=== PATIENT | male | born 1965 | race Caucasian/White ===

== ENCOUNTER 2020-08-05 13:00 | Outpatient (REF) | payer OTHER, SELFPAY ==
[2020-08-05 13:53] LABS: Abs Immature Grans 0.02 10^3/uL (0.0-0.06); Absolute Basophil Count 0.03 10^3/uL (0.0-0.2); Absolute Lymphocyte Count 1.15 10^3/uL (1.2-3.4); Absolute Monocyte Count 0.43 10^3/uL (0.1-0.8); Absolute Neutrophil Count 3.38 10^3/uL (1.2-6.7); Basophils % 0.6; Immature Grans % 0.4; Lymphocytes % 22.5; MCH 31.4 pg (27.0-33.0); MCV 92.2 fL (80-95); MPV 11.6 fL (8.0-11.0); Monocytes % 8.4; Neutrophils % 66.1; Nucleated RBC 0 %; WBC 5.11 10^3/uL (4.4-10.8)
[2020-08-05 14:14] LABS: ALT 65 U/L (16-63); AST 35 U/L (15-37); Albumin 3.5 g/dL (3.4-5.0); Alkaline Phosphatase 155 U/L (46-116); Anion Gap 5.2 mmol/L (3-11); BUN 9 mg/dL (7-18); Bilirubin, Total 0.6 mg/dL (0.2-1.0); CO2 30.8 mmol/L (21.0-32.0); CREATININE 0.99 mg/dL (0.70-1.30); Calcium 8.8 mg/dL (8.5-10.1); Chloride 101 mmol/L (98-107); Diff Comment PLT Morph Reviewed; Glucose 103 mg/dL (74-106); Platelet Count 115 10^3/uL (130-400); Polychromasia Present; Potassium 4.6 mmol/L (3.5-5.1); Sodium 137 mmol/L (136-145); Total Protein 7.2 g/dL (6.4-8.2)
== END 2020-08-05 13:20 ==
LOC: LBN 13:00
PROVIDERS: PCP Emergency Medicine; Visit Provider Nurse Practitioner Family
DX: L03.116 Cellulitis of left lower limb (principal)
CPT/HCPCS: 80053; 85025; 85610

== ENCOUNTER 2020-08-13 12:04 | Outpatient (REF) | payer OTHER, SELFPAY ==
[2020-08-13 21:37] LABS: Abs Immature Grans 0.02 10^3/uL (0.0-0.06); Absolute Basophil Count 0.02 10^3/uL (0.0-0.2); Absolute Lymphocyte Count 1.21 10^3/uL (1.2-3.4); Basophils % 0.5; Eosinophils % 2.4; HCT 46.2 % (40.0-50.0); HGB 15.5 g/dL (13.5-17.5); Immature Grans % 0.5; Lymphocytes % 29.2; MCH 31.1 pg (27.0-33.0); MCHC 33.5 % (32.0-36.0); MCV 92.6 fL (80-95); MPV 11.6 fL (8.0-11.0); Monocytes % 7.2; Neutrophils % 60.2; Nucleated RBC 0 %; Platelet Count 129 10^3/uL (130-400); RBC 4.99 10^6/uL (4.36-5.78); RDW 11.9 % (11.8-14.1); RDW-SD 40.4 fL; WBC 4.15 10^3/uL (4.4-10.8)
[2020-08-13 22:04] LABS: Prothrombin Time 9.6 sec (9.3-11.0)
[2020-08-13 22:08] LABS: ALT 122 U/L (16-63); AST 53 U/L (15-37); Albumin 3.7 g/dL (3.4-5.0); Alkaline Phosphatase 138 U/L (46-116); Bilirubin, Direct 0.19 mg/dL (0.00-0.20); Bilirubin, Total 0.8 mg/dL (0.2-1.0); Total Protein 7.1 g/dL (6.4-8.2)
[2020-08-13 22:27] LABS: GGT 488 U/L (15-85)
[2020-08-13 23:23] LABS: ESR 17 mm/hr (1-20)
== END 2020-08-13 12:24 ==
LOC: LBN 12:04
PROVIDERS: PCP Emergency Medicine; Visit Provider Nurse Practitioner Family
DX: F10.11 Alcohol abuse, in remission (principal); L03.116 Cellulitis of left lower limb; I77.6 Arteritis, unspecified; I10 Essential (primary) hypertension; R21 Rash and other nonspecific skin eruption
CPT/HCPCS: 80076; 85652; 82977; 85025; 85610; 86140

== ENCOUNTER 2020-08-21 11:45 | Outpatient (CLI) | payer OTHER, SELFPAY ==
[2020-08-21 13:00] LABS: Abs Immature Grans 0.01 10^3/uL (0.0-0.06); Absolute Basophil Count 0.03 10^3/uL (0.0-0.2); Absolute Eosinophil Count 0.14 10^3/uL (0.0-0.7); Absolute Lymphocyte Count 0.96 10^3/uL (1.2-3.4); Absolute Monocyte Count 0.28 10^3/uL (0.1-0.8); Absolute Neutrophil Count 2.69 10^3/uL (1.2-6.7); Basophils % 0.7; Eosinophils % 3.4; HCT 44.7 % (40.0-50.0); HGB 15.2 g/dL (13.5-17.5); Immature Grans % 0.2; Lymphocytes % 23.4; MCH 30.9 pg (27.0-33.0); MCV 90.9 fL (80-95); MPV 11.3 fL (8.0-11.0); Monocytes % 6.8; Neutrophils % 65.5; Nucleated RBC 0 %; Platelet Count 155 10^3/uL (130-400); RBC 4.92 10^6/uL (4.36-5.78); RDW 11.5 % (11.8-14.1); RDW-SD 38.5 fL; WBC 4.11 10^3/uL (4.4-10.8)
[2020-08-21 14:12] LABS: D-Dimer 838 ng/mlFEU (<500)
[2020-08-21 14:14] LABS: ALT 168 U/L (16-63); AST 65 U/L (15-37); Albumin 3.6 g/dL (3.4-5.0); Alkaline Phosphatase 139 U/L (46-116); Anion Gap 7.9 mmol/L (3-11); BUN 9 mg/dL (7-18); Bilirubin, Total 0.5 mg/dL (0.2-1.0); C-Reactive Protein 0.08 mg/dL (0.0-0.3); CO2 29.1 mmol/L (21.0-32.0); CREATININE 0.93 mg/dL (0.70-1.30); Calcium 8.8 mg/dL (8.5-10.1); Chloride 104 mmol/L (98-107); Glucose 88 mg/dL (74-106); Potassium 4.1 mmol/L (3.5-5.1); Sodium 141 mmol/L (136-145)
[2020-08-21 15:45] LABS: Bilirubin Negative (Negative); Blood Small (Negative); Clarity Clear (Clear); Glucose Negative (Negative); Ketones Negative (Negative); Leukocyte Esterase Negative (Negative); Nitrite Negative (Negative); Urobilinogen 0.2 EU/dL (Up TO 0.2); pH 5.5 (5-8)
[2020-08-21 16:06] LABS: Bacteria Negative HPF (Negative); Casts Negative LPF (Negative); Crystals Negative HPF (Negative); Epithelial Cells Few HPF (Negative); Mucus Negative (Negative); Other Cells Negative (Negative); WBC 0-2 HPF (0-5)
[2020-08-21 16:07] LABS: C & S Indicated? No
[2020-09-05 12:36] LABS: ANA Interpretation 0.2 (Negative)
[2020-09-05 12:38] LABS: ANCA Interpretation Negative (Negative)
== END 2020-08-21 12:05 ==
PROVIDERS: PCP Emergency Medicine; Visit Provider Emergency Medicine
DX: I77.6 Arteritis, unspecified (principal); R30.0 Dysuria
CPT/HCPCS: 36415; 80053; 86255; 81003; 81015; 85025; 85379; 86038; 86140

== ENCOUNTER 2021-01-09 01:54 | Outpatient (CLI) | payer BC, SELFPAY ==
[2021-01-10 16:17] LABS: COVID-19 RT-PCR UVMMC Result Negative (Negative)
== END 2021-01-09 01:55 | disposition home or self-care (01) ==
LOC: LBO 01:55
PROVIDERS: PCP Emergency Medicine; Visit Provider Emergency Medicine
DX: Z20.828 Contact with and (suspected) exposure to other viral communicable diseases (principal)
CPT/HCPCS: U0003

== ENCOUNTER → 2022-06-30 01:53 | Outpatient (CLI) | payer BC, SELFPAY ==
--- NOTE | 2022-06-30 07:45 | DI.RAD_ITS ---
Exam(s) XR LUMBAR SPINE COMPLETE EXAM: XR LUMBAR SPINE COMPLETE CLINICAL HISTORY: Worsening lower back pain,m54.50. TECHNIQUE: 2D digital imaging was performed of the lumbar spine. Six images were obtained. AP, lat eral, right oblique, left oblique and L5-S1 spot views were obtained. COMPARISON: No exams were available for comparison FINDINGS: BONES: No fracture or destructive lesion. Degenerative disc disease is seen throughout the lumbar spi ne. Degenerative facet disease is seen in the at L5-S1. DISKS: There is disc space narrowing at L1-L2 and L5-S1. ALIGNMENT: Lumbar spinal alignment is within normal limits. No spondylolysis or spondylolisthesis. SOFT TISSUE: Normal. IMPRESSION: [id number] lumbar spondylosis. DATA REPOSITORY: RADIATION DOSE DELIVERED:
== END ==
PROVIDERS: PCP Nurse Practitioner Family; Visit Provider Nurse Practitioner Family
DX: M47.816 Spondylosis without myelopathy or radiculopathy, lumbar region (principal)
CPT/HCPCS: 72110

== ENCOUNTER 2022-07-02 04:21 | Outpatient (CLI) | payer BC, SELFPAY ==
[2022-07-02 14:21] LABS: ALT 61 U/L (16-63); AST 33 U/L (15-37); Albumin 3.6 g/dL (3.4-5.0); Alkaline Phosphatase 148 U/L (46-116); BUN 11 mg/dL (7-18); Bilirubin, Total 1.4 mg/dL (0.2-1.0); CREATININE 1.1 mg/dL (0.70-1.30); Calcium 8.7 mg/dL (8.5-10.1); Calculated LDL 82 mg/dL (<100); Chloride 104 mmol/L (98-107); Cholesterol 169 mg/dL (<200); Estimated GFR 79.77 (mL/min/1.73m2); Glucose 94 mg/dL (74-106); HDL Cholesterol 66 mg/dL (40-60); Potassium 4.2 mmol/L (3.5-5.1); Sodium 139 mmol/L (136-145); Total Protein 7.3 g/dL (6.4-8.2); Triglyceride 105 mg/dL (<150)
[2022-07-02 14:32] LABS: GGT 576 U/L (15-85)
== END 2022-07-02 04:22 | disposition home or self-care (01) ==
LOC: LOS 04:21
PROVIDERS: PCP Nurse Practitioner Family; Visit Provider Nurse Practitioner Family
DX: F10.20 Alcohol dependence, uncomplicated (principal); E78.2 Mixed hyperlipidemia
CPT/HCPCS: 36415; 80053; 80061; 82977

== ENCOUNTER → 2022-08-21 00:22 | Outpatient (CLI) | payer BC, SELFPAY ==
--- NOTE | 2022-08-21 07:00 | DI.MRI_ITS ---
Exam(s) MR LUMBAR SPINE WO EXAM: MR LUMBAR SPINE WO CLINICAL HISTORY: Worsening back pain.m54.50. TECHNIQUE: Multiplanar multisequence MRI of the Lumbar spine was performed. COMPARISON: CR XR LUMBAR SPINE COMPLETE from 06/30/2022 FINDINGS: Conus medullaris is at normal level. There is no evidence of conus mass nor subjacent clumping of in trathecal nerve roots to suggest arachnoiditis. The distal thecal sac appears unremarkable.There is no evidence of Tarlov intrasacral cysts nor other significant findings within the sacral canal Bones:There is slight anterior wedging of L2 vertebral body with some mild bone edema at this level. A this may be a subacute fracture at this level versus is anterior Schmorl's node invagination. The re are no fracture lines extending posteriorly towards the posterior vertebral body cortex and pedicl es. With respect to the individual disc levels... T12-L1: Unremarkable L1-2: Normal disc height and signal. No disc herniation nor central canal stenosis.No foraminal steno sis L2-3: Normal disc height. No disc herniation nor central canal stenosis.No foraminal stenosis.No face t arthropathy. L3-4: Normal disc height. No disc herniation or central canal stenosis.No foraminal stenosis.No face t arthropathy. L4-5: Normal disc height and signal. There is a central subligamentous disc protrusion at this level which extends posteriorly 3 millimeters and which measures 12 millimeters wide. This slightly inden ts the anterior aspect of the thecal sac. It does not extend laterally into the exiting neural amrit anat which are nicely patent bilaterally. No facet arthropathy nor ligamentum flavum hypertrophy at t his level. Central canal dimensions are lower normal. No foraminal stenosis. L5-S1: This level exhibits mild disc space narrowing and Modic type 2 sub endplate fatty marrow russo es on both sides of the disc space. There is no disc herniation at this level. No central canal tierra nosis. No foraminal stenosis. No facet arthropathy. Soft tissues: Small cysts in the right kidney are noted. Tiny cyst in the left kidney noted. The l argest cyst is in the right kidney and measures 2.9 x 2.9 cm. IMPRESSION: 1. At the L4-5 level there is a central subligamentous disc protrusion as described above. This inde nts the anterior aspect of thecal sac. It does not extend lateral to the posterior longitudinal liga ment as does not extend into the exiting neural foramina. Central canal dimensions are lower normal and there is no foraminal stenosis at this level. 2. Mild disc space narrowing and Modic type 2 sub endplate fatty marrow changes noted at L5-S1 level but no evidence of disc herniation at this level, canal stenosis, nor foraminal stenosis. 3. Indentation of the superior endplate of the anterior aspect of L2 vertebral body with some bone ed ciarra at this level indicating recent event, either developing Schmorl's node or subtle fracture at thi s level. Correlation with any recent trauma recommended. This finding and intraosseous signal abnor mality does not extend posterior to the mid aspect of the vertebral body and does not approach level the pedicles. There is no disc herniation at this level nor canal stenosis. DATA REPOSITORY:
== END ==
PROVIDERS: PCP Nurse Practitioner Family; Visit Provider Nurse Practitioner Family
DX: M54.50 Low back pain, unspecified (principal)
CPT/HCPCS: 72148

== ENCOUNTER 2023-02-09 10:23 | Emergency (ER) | payer BC, SELFPAY ==
[2023-02-09] VITALS (102 sets, daily range): BP systolic 114–135; BP diastolic 60–101; PULSE 80–112; RESP 13–28; TEMP 37; O2SAT 97
--- OUTSIDE RECORDS SUMMARY | 2023-02-09 10:30 | XMS_ITS | Continuity of Care Document ---
Author Name Unknown Organization [facility] Address [address] [place] [id number] Care Team Providers Care Security Flex Officer Name Role Phone OMAR STONE Primary Care Physicia n Encounter [facility] NBR [id number] Date(s): 12/10/22 - 12/10/[address] [id number]- Discharge Disposition: Home or Self Care Attending Physician: GREGG Koroma Admitting Physician: GREGG Koroma Allergies, Adverse Reactions, Alerts No Known Medication Allergies Medications losartan 100 mg oral tablet 100 mg = 1 tab, Oral, Daily, 0 Refill(s) Start Date: 12/09/22 Status: Ordered spironolactone 25 mg oral tablet 25 mg = 1 tab, Oral, Daily, 0 Refill(s) Start Date: 12/09/22 Status: Ordered Problem List Condition Confirmation Course Effective Dates Status H ealt Status Informant Alcoholism Confirmed Active Compression fracture of L2 Confirmed Active DDD (degenerative disc disease), lumbar Confirmed Active Degeneration of lumbar intervertebral disc Confirmed Active Dupuytren's contracture 1 Confirmed Active Hyperlipidemia Confirmed Active Hypertension Confirmed Active Low back pain Confirmed Active Vasculitis Confirmed Active 1right hand Results Radiology Reports * Exam Date Time Procedure Performing Provider Status 12/10/22 10:59 AM XR Spine Lumbosacral 2 or 3 Views Hortensia Rodríguez; Lucina (Verified) Notes: (XR Spine Lumbosacral 2 or 3 Views) Reason For Exam: low back pain XR Spine Lumbosacral 2 or 3 Views EXAM DESCRIPTION: XR Spine Lumbosacral 2 or 3 Views 12/10/2022 INDICATION: LOW BACK PAIN TECHNIQUE: Lateral views of the lumbar spine in the neutral position as well as with voluntary flexion/extension, three views COMPARISON: None IMPRESSION: Minimal retrolisthesis at L2-3. Lumbar lordosis is otherwise satisfactory Views with voluntary flexion/extension demonstrate no evidence of significant instability. No compression deformity identified in the lumbar region in the lateral projection. Intervertebral disc space narrowing at L5-S1 with mild endplate osteophyte formation at L1-2 consistent with degenerative disc disease. JOB #: [id number] Final Signed by: Hilton Pride MD Signed (Electronic Signature): 12/10/2022 11:02 am Social History Social History Type Response Tobacco Current everyday tob acco user Tobacco Use:. chewing 7-8 pouches per day. Sex XR Spine Lumbar and Sacrum GE 2 Views * Hilton Pride MD: VERIFY, VERIFY Event Display: Report EXAM DESCRIPTION: XR Spine Lumbosacral 2 or 3 Views 12/10/2022 INDICATION: LOW BACK PAIN TECHNIQUE: Lateral views of the lumbar spine in the neutral position as well as with voluntary flexion/extension, three views COMPARISON: None IMPRESSION: Minimal retrolisthesis at L2-3. Lumbar lordosis is otherwise satisfactory Views with voluntary flexion/extension demonstrate no evidence of significant instability. No compression deformity identified in the lumbar region in the lateral projection. Intervertebral disc space narrowing at L5-S1 with mild endplate osteophyte formation at L1-2 consistent with degenerative disc disease. JOB #: [id number] Final Signed by: Hilton Pride MD Signed (Electronic Signature): 12/10/2022 11:02 am Patient Care team information Care Team Personnel Name: OMAR STONE Position: No Access Member Role: Primary Care Physician Address: Address: [address] [place] [id number] [place] [address]
--- OUTSIDE RECORDS SUMMARY | 2023-02-09 10:30 | XMS_ITS | Continuity of Care Document ---
Author Name Unknown Organization [facility] Address [address] [place] [address] Care Team Providers Care Gui Developer Name Role Phone OMAR STONE Primary Care Physicia n Encounter [facility] NBR [id number] Date(s): 12/10/22 - 12/10/22 [facility] [address] [place] [address]- Encounter Diagnosis Low back pain(Discharge Diagnosis) - 12/10/22 Degeneration of lumbar intervertebral disc(Discharge Diagnosis) - 12/10/22 Compression fracture of L2(Discharge Diagnosis) - 12/10/22 Low back pain, unspecified(Final) - Other intervertebral disc degeneration, lumbar region(Final) - Wedge compression fracture of second lumbar vertebra, initial encounter for closed fracture(Final) - Discharge Disposition: Home or Self Care Attending Physician: OMAR STONE Referring Physician: OMAR STONE Allergies, Adverse Reactions, Alerts No Known Medication Allergies Functional Status 12/10/22 Other exposure to Infectious Disease Non e Medications losartan 100 mg oral tablet 100 [...] Confirmed Active Vasculitis Confirmed Active 1right hand Vital Signs Most recent to oldest [Reference Range]: 1 Temperature Temporal Artery [36-38 Deg C ] 35.5 Deg C *LOW* (12/10/22 10:12 AM) Peripheral Pulse Rate [60-100 bpm] 93 bp m (12/10/22 10:12 AM) Blood Pressure [90-140/60-90 mmHg] 118/8 4mmHg (12/10/22 10:12 AM) Weight 118.30 kg (12/10/22 10:12 AM) Weight Measured (lbs) 260.807 lb (12/10/22 10:12 AM) [place] Body Weight Calculated 79.9 kg (12/10/22 10:12 AM) Height 185.42 cm (12/10/22 10:12 AM) Height/Length Measured (inches) 73 inch (12/10/22 10:12 AM) BSA Measured 2.47 m2 (12/10/22 10:12 AM) Body Mass Index 34.41 kg/m2 (12/10/22 10:12 AM) Social History Social History Type Response Tobacco Current everyday tob acco user Tobacco Use:. chewing 7-8 pouches per day. Sex Physician Outpatient Note * GREGG Koroma: PERFORM Event Display: Office Clinic Note Physician Authored Date: [id number] ALISHA CHAUDHRY :1965 Age:57 years Sex:Male Visit Date:12/10/2022 Primary Care Physician: OMAR STONE Chief Complaint Lower back pain Additional Information surg Hx: Bilat wrist surgery 2017 (LT) 2008 (RT) Home exercise daily History of Present Illness The patient presents to the spine center for evaluation of his low back pain.?? The patient reportsthat he has had??chronic back pain??and sciatica for a long time but??in February 2022 he had a fall andsince then his pain has??increased??and has??been debilitating.?? He reports that he had a slip andfall where he landed on his back. ??He reports that at the same time he had COVID and was coughing f requently.?? He states that his pain was severe in his low back.?? He went to a chiropractor for multiple treatments and that was somewhat helpful.?? He states that particularly the ultrasound therapy was helpful. ??However, even though the pain has decreased slightly and still persists. ??His painis mostly in the middle in his low back??down very low.?? Occasionally he will have pain and tingling sensation that extends down the??lateral thigh??to the medial lower leg on both sides. ??He states that previously he only had this type of pain in the right leg.?? Fortunately, this does not happen frequently??and he does not believe he has had any leg symptoms??in the past month.??In regard to his low back pain,??this is bothered by movement including bending or twisting. ??Being in a prolonged position for any length of time also causes increased pain.?? He states that??it is at the point where he really cannot do much. ??He enjoys hunting and was not able to go this year due to his pain.?? He has??tried different forms of CBD oil which were somewhat helpful initially but stopped working.?? He has been prescribed muscle relaxers which were not very helpful and actually made him shake.?? He was also prescribed oxycodone but did not feel that was helpful so stopped taking??the medication. ?? Review of Systems Relevant ROS discussed in HPI Physical Exam Vitals & Measurements T:??35.5?C ??(Temporal Artery)?? HR:??93??(Peripheral)?? BP:??118/84?? SpO2:??98%?? HT:??185.42??cm?? WT:??118.30??kg?? BMI:??34.41?? BSA:??2.47?? GENERAL:?General Appearance:?pleasant, age appropriate. ??Appears uncomfortable when movingor changing positions. MUSCULOSKELETAL:?Musculoskeletal:??Tenderness over the upper and lower lumbar spine. ??No??lumbar paraspinal muscle,??bilateral SI joint or bilateral greater trochanteric bursa tenderness.?? NEUROLOGICAL:?Neurological:?? Negative straight leg bilaterally. ?Motor:?Strength 5/5 with bilateral hip flexion, knee flexion and extension, ankle dorsiflexion and plantar flexion.?Reflexes:?1+ and symmetric in biceps, triceps, brachioradialis,??knees??and anklesbilaterally. ? Tone: normal? Gait:??Slightly antalgic. Assessment/Plan 1.??Low back pain??M54.50 Ordered: XR Spine Lumbosacral 2 or 3 Views, 12/10/22 10:47:00 EST, Routine, Reason: low back pain, FLEX/EXT,Transport Mode: Ambulatory, Low back pain, ABN Status: Not Required ?? 2.??Degeneration of lumbar intervertebral disc??M51.36 ?? 3.??Compression fracture of L2??S32.020A ?? The patient has been struggling with chronic low back pain that has been worse since a fall last February.?? It is very likely that he sustained the L2 compression fracture with this fall hence his increased pain.?? At the time he states that he also had COVID and was coughing frequently which likely exacerbated his pain and prolong the healing. ??The MRI suggest that this is an old injury so it??has likely healed and should not be??causing him significant pain. ??It is possible that some of his pain is originating from the??facet joints at this level??following the injury.?? He also has??degeneration with endplate changes at L5-S1 which could be contributing to his??low back pain.?? The patientalso endorses that he feels that there is a muscular component with??muscle spasm and tightness in his low back.?? Explained to patient that at this point I would not recommend surgical correction for his problem as we are not??completely certain the origination of his pain.?? He may benefit from??further therapy including chiropractic treatments and physical therapy. ??Patient has tried both of t hese??with??only some temporary relief.?? We discussed that he may benefit from various injections??for his low back pain.?? Was explained that injections??can hopefully relieve his pain but can alsobe diagnostic and trying to localize the source of his pain.?? The patient is interested in a referral to the pain clinic at??[facility].?? I also suggested obtaining flexion-extension lumbar spine x-rays to evaluate for any abnormal movement. Plan: Flexion and extension lumbar spine x-rays. Referral to pain clinic??for consideration of injections. ? Time spent face to face with the patient was 42 minutes of which over 50% of the time was spent discussing diagnosis, prognosis, work-up and management. An additional 15 minutes was spent reviewing diagnostics and on documentation. Referral Orders Referral Management, Medical Service: Pain Management, Reason: Low back pain, hx L2 compression fracture, lumbar disc degeneration, Start: 12/10/22, Instructions: [facility] Pain Problem List/Past Medical History Ongoing Alcoholism Compression fracture of L2 DDD (degenerative disc disease), lumbar Degeneration of lumbar intervertebral disc Dupuytren's contracture Hyperlipidemia Hypertension Low back pain Vasculitis Historical No qualifying data Medications losartan 100 mg oral tablet, 100 mg= 1 tab, Oral, Daily spironolactone 25 mg oral tablet, 25 mg= 1 tab, Oral, Daily Allergies No Known Medication Allergies Social History Alcohol Current, Beer, Daily, Average drinks per day: 7 beers a day. Electronic Cigarette/Vaping Electronic Cigarette Use: Never. Substance Use Current, Marijuana, 1-2 times per week Tobacco Current everyday tobacco user Tobacco Use:. chewing 7-8 pouches per day. Diagnostic Results Diagnostic Study Interpretation: MRI of the lumbar spine was reviewed with the patient.?? This imaging was also reviewed with Dr. Maciel. ??There are degenerative disc changes??throughout the lumbar spine but most pronounced at L5-S1.?? At L4-5 there is a central disc bulge??that causes thecal sac indentation??but no significant??stenosis or neuroforaminal narrowing.?? At L5-S1 there??are Modic type II endplate changes??and mild bilateral facet hypertrophy??but there is no significant central stenosis or foraminal narrowing.?? There??is what appears to be an anterior wedge compression fracture of the L2 vertebral body??withmild edema on the T2??sagittal imaging??at this level??however there is no increased signal??of theL2 vertebral body on??STIR imaging. Electronically Signed on 12/10/22 11:01 AM GREGG Koroma Patient Care team information Care Team Personnel Name: OMAR STONE Position: No Access Member Role: Primary Care Physician Address: Address: [address] [place] [phone] [place]
--- NOTE | 2023-02-09 10:45 | RT.EKG_ITS ---
APPROVED REPORT Exam: Resting ECG Reason for Exam: nose bleed Patient Location: E HR:88 bpm ECG Measurements Heart Rate 88 AXIS ND 168 P 62 QRSd 144 QRS -44 QT 410 T 40 QTc 497 Conclusion Sinus rhythm...normal P axis, V-rate 60- 99 RBBB and LAFB...QRSd >120mS, axis(-40,240) Probable left ventricular hypertrophy...(RaVL+SV3)xQRSd >280 ----- Sinus rhythm with right bundle branch block, left anterior fascicular block, left ventricular hypertr ophy, baseline artifact, no prior for comparison.
--- NOTE | 2023-02-09 11:10 | ED.GENADUL_ITS ---
Discharge Plan Disposition Patient Disposition: Home Condition: Stable Discharge Details Clinical Impression: Low back pain, Vasculitis, Bleeding nose Primary Care Provider: Tariq Saini ED Provider: Megan Ferraro Home Meds and New Rx's Prescriptions: No Action losartan 100 mg tablet 100 mg PO DAILY Qty: 90 3RF spironolactone 25 mg tablet 25 mg PO DAILY Qty: 90 3RF Discharge Instructions Instructions: Nosebleed (ED), Low Back Strain (ED), Purpura (ED) Additional Instructions: You may use the Afrin twice a day for the next 2 days if you have another nosebleed. You referred to hematology in 2020 to evaluate your vasculitis. I do recommend that you make an appointment to follow-up with them now. Keep legs elevated is much as possible. Referrals: Tariq Saini, [employer] [Primary Care Provider] - 3 days Discharge Data Discharge Physician: Megan Ferraro Medical Decision Making 57-year-old male presents for evaluation of nosebleed. On examination patient appears pale. He has been having intermittent chest pain and shortness of breath. He has significant bruising and petechiae to his lower extremities without trauma. EKG was obtained which did not show any acute ischemic changes. Laboratory studies does not show any significant anemia at this time. He is not thrombocytopenic. He has mildly elevated creatinine today. He does have an elevation in his total bilirubin but LFTs otherwise appear to be trending down. I did review prior records. Patient apparently has had this petechial rash on his lower extremity as well as leg swelling for years. He was referred to hematology in 2020 however it does not appear that he had that follow-up. I have made referral to hematology for follow-up today. Patient's nosebleed stopped on its own. He was given a dose of Afrin. He will use Afrin as needed at home. He understands how to hold pressure. He understands indications to return. ECG Data Interpretation: 12 lead EKG performed at 11: 03 Indication: Chest pain Rhythm: Normal sinus rhythm Rate: 88 [place]:Normal Intervals: Normal QRS: Right bundle branch block, left anterior fascicular block, left ventricular hypertrophy ST segments: Normal T Waves: Normal INTERPRETATION: Sinus rhythm with right bundle branch block, left anterior fascicular block, left ventricular hypertrophy, baseline artifact, no prior for comparison The 12 lead EKG was interpreted by myself HPI General Date/Time Provider Initiated Documentation: 02/09/23 10:31 . HPI Narrative: 57-year-old male with history of hypertension and chronic back pain presents for evaluation of nosebleed. Patient states that he has had ongoing back pain after an injury over a year ago. He has been out of work secondary to that injury. Does have a history of high blood pressure and his primary care physician has been attempting to get his blood pressure under better control. This morning upon awakening he had some sinus congestion. He then coughed and developed a bloody nose. He states that the bleeding is coming from both sides of his nose. He occasionally feels some going down his throat. He denies any vomiting. No fevers or chills. He is not on any blood thinners. He has not been taking any aspirin or Motrin. No history of nosebleeds in the past. Patient states that he has been having some intermittent chest discomfort and shortness of breath recently. It does appear to be worse with exertion. He has not had any laboratory studies done for over a year. He has had some significant bruising. He has large bruises to his anterior lower legs bilaterally. He also has petechiae through his lower extremities. He denies any known trauma. Denies any bright red blood per rectum. No dark stools. Denies any history of issues with his platelets. Related Data Home Medications Medication Instructions Recorded Confirmed losartan 100 mg tablet 100 mg PO DAILY #90 tabs 10/01/22 02/09/23 spironolactone 25 mg tablet 25 mg PO DAILY #90 tabs 11/02/22 02/09/23 Previous Rx's Medication Instructions Recorded losartan 100 mg tablet 100 mg PO DAILY #90 tabs 10/01/22 spironolactone 25 mg tablet 25 mg PO DAILY #90 tabs 11/02/22 Allergies Allergy/AdvReac Type Severity Reaction Status Date / Time No Known Allergies Allergy Verified 02/09/23 10:41 General Stated Complaint: Epistaxis MARQUISE: 3 Review of Systems Narrative: Remainder review of systems otherwise negative except for as noted in the HPI x10. PFSH All Active Problems (Updated 02/09/23 @ 14:52 by Megan Ferraro MD) Bleeding nose (Acute) DDD (degenerative disc disease), lumbar (Acute) Obesity (BMI 30.0-34.9) (Acute) Hyperlipemia, mixed (Acute) Sleep disorder (Acute 05/07/17) Dupuytrens contracture (Acute) contracture of the right fifth finger. He has moderate ones of the right fourth and left fourth and fifth. surgery Jacek 06/20 Alcoholism (Acute) Low back pain (Acute) Vasculitis (Acute) Hypertension (Chronic) Family History Mother No problems noted. Father Heart disease Neoplasm LUNG/BRAIN Sister No problems noted. Grandfather Heart disease Grandfather No problems noted. Grandmother No problems noted. Grandmother Asthma FAMILY HISTORY Diabetes Depression Myocardial infarction Social History Smoking/Tobacco Use Status: Current every day Tobacco Type: smokeless tobacco Tobacco: How many years used: 42 Smokeless tobacco user: snuff Second Hand Exposure: Yes Smoking risk assessment performed?: Yes Alcohol Intake: current Alcohol Intake frequency: a few times a week Alcohol type: beer Drug use: Occasionally Substance use type: marijuana Household members: friend(s) Housing: house Communication Needs: Hard of Hearing Do you need help understanding health information?: Rarely Pets and animals: Yes Pets and animals: cat(s) Sexually active: Yes Do you think of yourself as: straight/heterosexual Current gender identity: male What is your relationship status?: How often do you talk on the phone with friends or family?: never Panel score (0-1 are the most socially isolated patients): 0 Do you feel safe at home: Yes Do you feel safe in your relationship?: Yes Exam Narrative Exam Narrative: General: non-toxic, no respiratory distress, comfortable HEENT: normocephalic, atraumatic, lids and lashes normal, PERRL, EOMI, anicteric sclera, pale conjunctiva, moist oral mucosa, nasal clamp in place Card: regular rate and rhythm, S1S2, + murmur, no rubs, or gallops Lungs: good air entry, clear to ascultation bilaterally. no wheezes, rales, rhonci, or retractions Abd: soft, non-tender, non-distended, normal bowel sounds, no rebound or guarding, no peritoneal signs Musculoskeletal: Large bruises to anterior lower legs bilaterally, diffuse petechiae throughout lower extremities, full range of motion of arms and legs, no tenderness to palpation. no clubbing or cyanosis, bilateral lower extremity edema Neurologic: appropriate for age, strength normal Psych: alert and oriented Skin: As above, otherwise no petechiae, no lesions, warm and dry Course Reevaluation(s) Reevaluation: 1230-at reassessment patient is not having any further nosebleeding. He is no longer tachycardic. Vital Signs Vital signs: Vital Signs Temperature 37.0 C 02/09/23 10:29 Pulse 112 H 02/09/23 10:29 Respiratory Rate 20 02/09/23 10:29 Blood Pressure 131/88 02/09/23 10:29 Pulse Oximetry 97 02/09/23 10:29 Temperature 37.0 C 02/09/23 10:29 Pulse 112 H 02/09/23 10:29 Respiratory Rate 20 02/09/23 10:29 Respiratory Effort Normal 02/09/23 10:33 Blood Pressure 131/88 02/09/23 10:29 Blood Pressure Position Sitting 02/09/23 10:29 Pulse Oximetry 97 02/09/23 10:29 Pain Level 0 02/09/23 10:29
[2023-02-09 11:16] LABS: Abs Immature Grans 0.02 10^3/uL (0.0-0.06); Absolute Basophil Count 0.04 10^3/uL (0.0-0.2); Absolute Eosinophil Count 0.03 10^3/uL (0.0-0.7); Absolute Lymphocyte Count 0.61 10^3/uL (1.2-3.4); Absolute Monocyte Count 0.23 10^3/uL (0.1-0.8); Absolute Neutrophil Count 5.22 10^3/uL (1.2-6.7); Basophils % 0.7; Eosinophils % 0.5; HGB 12.2 g/dL (13.5-17.5); Immature Grans % 0.3; Lymphocytes % 9.9; MCH 33.1 pg (27.0-33.0); MCHC 35.9 % (32.0-36.0); MCV 92 fL (80-95); MPV 10.8 fL (8.0-11.0); Monocytes % 3.7; Neutrophils % 84.9; Platelet Count 143 10^3/uL (130-400); RBC 3.69 10^6/uL (4.36-5.78); RDW 13.2 % (11.8-14.1); RDW-SD 44.3 fL; WBC 6.15 10^3/uL (4.4-10.8)
--- NOTE | 2023-02-09 11:17 | DI.RAD_ITS ---
Exam(s) XR PORTABLE CHEST AP EXAM: XR PORTABLE CHEST AP CLINICAL HISTORY: chest pain. TECHNIQUE: 2D digital imaging was performed. COMPARISON: No exams were available for comparison FINDINGS: Single AP portable view. Heart size is upper normal. The mediastinum is not widened. Lungs are clear. No infiltrates nor obvious pleural effusions. IMPRESSION: No acute pulmonary findings on this single AP portable view of the chest. DATA REPOSITORY: RADIATION DOSE DELIVERED:
[2023-02-09 11:18] LABS: ESR 10 mm/hr (0-20)
[2023-02-09 11:29] LABS: Prothrombin Time 10.4 sec (9.3-11.0)
[2023-02-09 11:40] LABS: PTT Activated 25.3 sec (21.5-31.9)
[2023-02-09 11:42] LABS: ALT 72 U/L (16-63); AST 39 U/L (15-37); Albumin 3.2 g/dL (3.4-5.0); Alkaline Phosphatase 131 U/L (46-116); BUN 14 mg/dL (7-18); Bilirubin, Total 3.3 mg/dL (0.2-1.0); CREATININE 1.5 mg/dL (0.70-1.30); Calcium 8.5 mg/dL (8.5-10.1); Chloride 98 mmol/L (98-107); Estimated GFR 54.64 (mL/min/1.73m2); Glucose 120 mg/dL (74-106); Magnesium 1.9 mg/dL (1.8-2.4); Potassium 3.4 mmol/L (3.5-5.1); Sodium 133 mmol/L (136-145); Total Protein 7.2 g/dL (6.4-8.2); Troponin I < 50 ng/L (<or=60)
[2023-02-09 12:00] LABS: C-Reactive Protein 1.13 mg/dL (0.0-0.3); NT-proBNP 83 pg/mL (<300)
[2023-02-09] MEDS: Oxymetazolone 0.05% SPRAY 15 ML BTL NS (12:51)
[2023-02-09 14:22] LABS: Troponin I < 50 ng/L (<or=60)
--- NOTE | 2023-02-10 16:02 | CMACTNOTE_ITS ---
Date of service: 02/10/23 Time of Service: 16:02 Care Management Activity Note Activity Note Text Activity Note Text: Eleuterio is seen in the ED for a nose bleed and vasculitis. At the request of ED provider, DHARA coordinates a referral to [facility]ematology to assist Eleuterio in obtaining an appointment for further evaluation and treatment. He has [facility] [place] for insurance.
--- NOTE | 2023-02-10 16:02 | PDOC.CMACT ---
Date of service: 02/10/23 Time of Service: 16:02 Care Management Activity Note Activity Note Text Activity Note Text: Eleuterio is seen in the ED for a nose bleed and vasculitis. At the request of ED provider, DHARA coordinates a referral to [facility]ematology to assist Eleuterio in obtaining an appointment for further evaluation and treatment. He has [facility] [place] for insurance.
--- NOTE | 2023-03-09 15:41 | NUR.NOTE ---
Nursing Note: Accessed pt chart for provider information and disposition
== END 2023-02-09 15:09 | disposition home or self-care (01) ==
PROVIDERS: Emergency Provider Emergency Medicine Emergency Medical Services; PCP Nurse Practitioner Family
DX: R04.0 Epistaxis (principal); M54.59 Other low back pain; L95.9 Vasculitis limited to the skin, unspecified; R06.02 Shortness of breath; R07.9 Chest pain, unspecified; I10 Essential (primary) hypertension
CPT/HCPCS: 36415; 80053; 85652; 86850; 86900; 86901; 93005; 99284; 71045; 83735; 83880; 84484; 85025; 85610; 85730; 86140; 93010; 99283

== ENCOUNTER 2023-02-15 14:10 | Outpatient (CLI) | payer BC, SELFPAY ==
--- NOTE | 2023-02-15 14:00 | RT.EKG_ITS ---
APPROVED REPORT Exam: Resting ECG Reason for Exam: Shortness of breath Patient Location: O HR:85 bpm ECG Measurements Heart Rate 85 AXIS TN 148 P 20 QRSd 141 QRS -34 QT 417 T 39 QTc 496 Conclusion Sinus rhythm...normal P axis, V-rate 50- 99 Right bundle branch block...QRSd>120, terminal axis(90,270) Left ventricular hypertrophy...multiple LVH criteria
== END 2023-02-15 14:11 | disposition home or self-care (01) ==
LOC: DI.CM 14:10
PROVIDERS: PCP Nurse Practitioner Family; Visit Provider Nurse Practitioner Family
DX: I10 Essential (primary) hypertension (principal); R06.02 Shortness of breath
CPT/HCPCS: 93010

== ENCOUNTER 2023-02-15 15:18 | Inpatient (IN) | payer BC, SELFPAY ==
[2023-02-15] VITALS (7 sets, daily range): BP systolic 98–143; BP diastolic 56–73; PULSE 76–88; RESP 18–22; TEMP 36.8–37.4; O2SAT 100
--- NOTE | 2023-02-15 15:00 | RT.EKG_ITS ---
APPROVED REPORT Exam: Resting ECG Reason for Exam: shortness of breath Patient Location: E HR:76 bpm ECG Measurements Heart Rate 76 AXIS GA 163 P 31 QRSd 146 QRS -32 QT 464 T 46 QTc 521 Conclusion Sinus rhythm...normal P axis, V-rate 60- 99 Right bundle branch block...QRSd>120, terminal axis(90,270) Left ventricular hypertrophy...multiple LVH criteria Lateral infarct, old...Q>40mS, flat T, V5 V6 I aVL
[2023-02-15 15:33] LABS: BE (Venous) -2 mmol/L (-2-3); HCO3 (Venous) 22 mmol/L (23-28); O2 Sat (Venous) 51 %; TCO2 (Venous) 21 mmol/L (24-29); pCO2 (Venous) 30 mmHg (41-51); pH (Venous) 7.47 (7.31-7.41); pO2 (Venous) 26 mmHg
[2023-02-15 15:37] LABS: Abs Immature Grans 0.02 10^3/uL (0.0-0.06); Absolute Basophil Count 0.02 10^3/uL (0.0-0.2); Absolute Eosinophil Count 0.02 10^3/uL (0.0-0.7); Absolute Lymphocyte Count 0.44 10^3/uL (1.2-3.4); Absolute Monocyte Count 0.26 10^3/uL (0.1-0.8); Absolute Neutrophil Count 3.56 10^3/uL (1.2-6.7); Basophils % 0.5; Eosinophils % 0.5; HCT 21.8 % (40.0-50.0); HGB 7.6 g/dL (13.5-17.5); Immature Grans % 0.5; Lymphocytes % 10.2; MCH 32.8 pg (27.0-33.0); MCHC 34.9 % (32.0-36.0); MCV 94 fL (80-95); MPV 10.1 fL (8.0-11.0); Neutrophils % 82.3; Platelet Count 128 10^3/uL (130-400); RBC 2.32 10^6/uL (4.36-5.78); RDW 13.7 % (11.8-14.1); RDW-SD 46.6 fL; WBC 4.32 10^3/uL (4.4-10.8)
--- NOTE | 2023-02-15 15:43 | W.ED.GENAD ---
Discharge Plan Disposition Patient Disposition: Admit to [facility] Condition: Serious Discharge Details Chief Complaint: GenMedical Clinical Impression: Pancytopenia, Purpura Primary Care Provider: Tariq Saini ED Provider: Donavan Parekh Home Meds and New Rx's Prescriptions: No Action losartan 100 mg tablet 100 mg PO DAILY Qty: 90 3RF spironolactone 25 mg tablet 25 mg PO DAILY Qty: 90 3RF Medical Decision Making 57 yo male with hx of htn who denies smoking or drug use other than marijuana occasionally though does drink alcohol frequently, comes in with ems with shortness of breath for 3 weeks. HE was seen for epistaxis on 02/09 and d/c'd. He states he's had nasal mucous with some blood tinge in it since. He has also noticed occasionall chest tightness, denies diaphoresis, n/v, or radiation of pain. He arrives stable speaking clearly with stable vitals, no hypotension, no tachycardia or hypoxia. He has clear lungs, soft nontender abdomen, no calf tenderness. He does have diffuse purpura of his lower legs bilaterally and left calf. His lvh on bedside u/s appears normal, questions tiny pericardial effusion though images limited. Unclear etiology for his dyspnea, will proceed with ekg, troponin, cbc, cmp, and cta to evaluate for pe vs infiltrate labs show acute changes from last visit, now anemic, thrombocytopenic and leukopenic, has lucy with gfr less then 30 so will hold on cta, still no hypoxia or tachycardia so unlikely pe. Given acute changes concern for sepsis and possible tick born illness. HE remains hemodynamically stable. He gave verbal consent to a rectal, had brown stool guiac negative. Will discuss with hospitalist about admission for further workup, other potential concerns are vasculitis and autoimmune disorders. Differential Diagnosis Differential Diagnosis: pe, pneumonia, nstemi, anemia Medical Records Medical records reviewed: Yes I reviewed the patient's medical records. Lab Data Lab results reviewed: Yes I reviewed the patient's lab results. ECG Data Attestation: I personally reviewed and interpreted this ECG (s) as follows: Prior ECG tracings: available for review Interpretation: sinus rate of 75, pr 161, rbbb, lvh, no stemi HPI General Mode of arrival: EMS. Date/Time Provider Initiated Documentation: 02/15/23 15:21. Limitations to Documentation: no limitations. Information obtained by: patient. History of Present Illness 57 year old M presents to the emergency department with the chief complaint of shortness of breath, described as moderate, Patient started experiencing this week(s) (3) and it has been constant. No relieving factors improve symptom(s), No exacerbating factors reported . Patient notes chest pain; denies fever/chills. Patient did receive the following treatments prior to arrival, none Related Data Home Medications Medication Instructions Recorded Confirmed losartan 100 mg tablet 100 mg PO DAILY #90 tabs 10/01/22 02/15/23 spironolactone 25 mg tablet 25 mg PO DAILY #90 tabs 11/02/22 02/15/23 Previous Rx's Medication Instructions Recorded losartan 100 mg tablet 100 mg PO DAILY #90 tabs 10/01/22 spironolactone 25 mg tablet 25 mg PO DAILY #90 tabs 11/02/22 Allergies Allergy/AdvReac Type Severity Reaction Status Date / Time No Known Allergies Allergy Verified 02/15/23 15:20 General Stated Complaint: GenMedical MARQUISE: 3 Review of Systems All systems reviewed & are unremarkable except as noted in HPI and below Constitutional Constitutional: Denies chills, Denies fever(s) and Denies weakness Cardiovascular Cardiovascular: Reports chest pain Respiratory Respiratory: Denies cough Gastrointestinal Gastrointestinal: Denies abdominal pain, Denies nausea and Denies vomiting Neurologic Neurologic: Denies weakness PFSH All Active Problems (Updated 02/15/23 @ 17:25 by Donavan Parekh MD) Pancytopenia (Acute) Purpura (Acute) Chest pain (Acute) Bleeding nose (Acute) DDD (degenerative disc disease), lumbar (Acute) Obesity (BMI 30.0-34.9) (Acute) Hyperlipemia, mixed (Acute) Sleep disorder (Acute 05/07/17) Dupuytrens contracture (Acute) contracture of the right fifth finger. He has moderate ones of the right fourth and left fourth and fifth. surgery Jacek 06/20 Alcoholism (Acute) Low back pain (Acute) Vasculitis (Acute) Hypertension (Chronic) Family History Mother No problems noted. Father Heart disease Neoplasm LUNG/BRAIN Sister No problems noted. Grandfather Heart disease Grandfather No problems noted. Grandmother No problems noted. Grandmother Asthma FAMILY HISTORY Diabetes Depression Myocardial infarction Social History Smoking/Tobacco Use Status: Current every day Tobacco Type: smokeless tobacco Tobacco: How many years used: 42 Smokeless tobacco user: snuff Second Hand Exposure: Yes Smoking risk assessment performed?: Yes Alcohol Intake: current Alcohol Intake frequency: a few times a week Alcohol type: beer Drug use: Occasionally Substance use type: marijuana Household members: friend(s) Housing: house Communication Needs: Hard of Hearing Do you need help understanding health information?: Rarely Pets and animals: Yes Pets and animals: cat(s) Sexually active: Yes Do you think of yourself as: straight/heterosexual Current gender identity: male What is your relationship status?: How often do you talk on the phone with friends or family?: never Panel score (0-1 are the most socially isolated patients): 0 Do you feel safe at home: Yes Do you feel safe in your relationship?: Yes Exam Const General: no acute distress Orientation: alert HENMT Head: normal to inspection Ears: external ears normal General nose exam: external nose normal Mouth: moist mucous membranes Eyes General: appearance normal, both eyes and all related structures Neck Neck: normal visual inspection Resp Effort & Inspection: normal respiratory effort and able to speak in complete sentences Auscultation: clear to auscultation bilaterally Cardio Jugular venous pressure: no JVD Rate: regular rate Heart Sounds: no murmurs GI Palpation: soft and nontender Skin General skin exam: no rashes or lesions noted Neuro General: patient alert and patient oriented x3 Extrem General: normal to inspection Psych Mental Status: mental status grossly normal Course Vital Signs Vital signs: Vital Signs Temperature 36.8 C 02/15/23 15:16 Pulse 80 02/15/23 15:16 Respiratory Rate 18 02/15/23 15:16 Blood Pressure 113/59 L 02/15/23 15:16 Pulse Oximetry 100 02/15/23 15:16 Temperature 36.8 C 02/15/23 15:16 Temperature Source Oral 02/15/23 15:16 Pulse 80 02/15/23 15:16 Respiratory Rate 22 02/15/23 15:35 Respiratory Effort Short of Breath 02/15/23 15:35 Respiratory Depth Normal 05/15/23 15:35 Respiratory Pattern Normal 02/15/23 15:35 Blood Pressure 113/59 L 02/15/23 15:16 Blood Pressure Position Supine 02/15/23 15:16 Pulse Oximetry 100 02/15/23 15:16 Oxygen Delivery Method Room Air 02/15/23 15:16 Oxygen Flow Rate 0 02/15/23 15:16 Pain Level 5 02/15/23 15:16 Lab/Test Results Lab/Test Results: 02/15/23 15:27 Blood Blood Culture - Pending 02/15/23 15:12 Blood Blood Culture - Pending Laboratory Tests Range/Units 02/15/23 02/15/23 15:27 15:27 WBC (4.4-10.8) 10^3/uL 4.32 L RBC (4.36-5.78) 10^6/uL 2.32 L Hgb (13.5-17.5) g/dL 7.6 L Hct (40.0-50.0) % 21.8 L MCV (80-95) fL 94 MCH (27.0-33.0) pg 32.8 MCHC (32.0-36.0) % 34.9 RDW (11.8-14.1) % 13.7 Plt Count (130-400) 10^3/uL 128 L MPV (8.0-11.0) fL 10.1 Immature Gran % 0.5 Neutrophils % 82.3 Lymphocytes % 10.2 Monocytes % 6.0 Eosinophils % 0.5 Basophils % 0.5 Nucleated RBC % (0.0-0.3) % 0.0 Absolute Neutrophils (1.2-6.7) 10^3/uL 3.56 Absolute Lymphocytes (1.2-3.4) 10^3/uL 0.44 L Absolute Monocytes (0.1-0.8) 10^3/uL 0.26 Absolute Eosinophils (0.0-0.7) 10^3/uL 0.02 Absolute Basophils (0.0-0.2) 10^3/uL 0.02 VBG pH (7.31-7.41) 7.47 H VBG pCO2 (41-51) mmHg 30 L VBG pO2 mmHg 26 VBG HCO3 (23-28) mmol/L 22 L VBG Total CO2 (24-29) mmol/L 21 L VBG O2 Saturation % 51 VBG Base Excess (-2-3) mmol/L -2 POCUS Exam (ED) Limited Cardiac Exam DATE OF EXAM: 02/15/23 TIME OF EXAM: 15:47 PROVIDER THAT PERFORMED THE STUDY: Donavan Parekh IS THIS A REPEAT EXAM DURING THIS ENCOUNTER: no REASON FOR EXAM: Dyspnea VISUALIZED STRUCTURES: Left ventricle and Right ventricle VIEW OBTAINED: Parasternal long-axis PERTINENT FINDINGS/IMPRESSION: No LV dysfunction Exam complete
[2023-02-15 15:47] LABS: PTT Activated 24.6 sec (21.5-31.9); Prothrombin Time 10.4 sec (9.3-11.0)
--- NOTE | 2023-02-15 16:00 | DI.RAD_ITS ---
Exam(s) XR PORTABLE CHEST AP EXAM: XR PORTABLE CHEST AP CLINICAL HISTORY: shortness of breath TECHNIQUE: 2D digital imaging was performed. COMPARISON: CR XR PORTABLE CHEST AP from 02/09/2023 FINDINGS: LUNGS: Clear. No pleural abnormality seen. HEART: Upper normal size. AORTA: Normal diameter. BONES: Unremarkable for age. Soft tissues: Unremarkable. IMPRESSION: No acute findings. DATA REPOSITORY: RADIATION DOSE DELIVERED:
[2023-02-15 16:02] LABS: ALT 32 U/L (16-63); AST 17 U/L (15-37); Albumin 2.5 g/dL (3.4-5.0); Alkaline Phosphatase 99 U/L (46-116); Anion Gap 10.3 mmol/L (3-11); BUN 32 mg/dL (7-18); Bilirubin, Direct 0.8 mg/dL (0.0-0.2); Bilirubin, Total 2.9 mg/dL (0.2-1.0); CO2 21.7 mmol/L (21.0-32.0); CREATININE 2.6 mg/dL (0.70-1.30); Calcium 8.3 mg/dL (8.5-10.1); Chloride 101 mmol/L (98-107); Estimated GFR 28.24 (mL/min/1.73m2); Glucose 114 mg/dL (74-106); Magnesium 2.1 mg/dL (1.8-2.4); NT-proBNP 197 pg/mL (<300); Potassium 3.1 mmol/L (3.5-5.1); Sodium 133 mmol/L (136-145); TSH (W/Ref FT4) 2.21 uIU/mL (0.36-3.74); Total Protein 5.9 g/dL (6.4-8.2); Troponin I < 50 ng/L (<or=60)
[2023-02-15 16:04] LABS: ETHANOL BLOOD < 3.0 mg/dL (<10)
[2023-02-15 16:18] LABS: Source Nasal/Nares
[2023-02-15] MEDS: Potassium Chloride 20 MEQ TABCR 40 MEQ PO (16:50)
[2023-02-15] MEDS: POTASSIUM CHLORIDE 10 MEQ/100 ML BAG 100 MEQ IVPB (16:50)
[2023-02-15 17:14] LABS: Procalcitonin 0.2 ng/mL
[2023-02-15] MEDS: cefTRIAXone 2 GM/50 ML BAG IVPB (17:15)
[2023-02-15 17:27] LABS: ESR 5 mm/hr (0-20)
[2023-02-15 17:35] LABS: C-Reactive Protein 1.51 mg/dL (0.0-0.3)
--- NOTE | 2023-02-15 17:37 | NUR.NOTE ---
hospitalist at bedside
[2023-02-15 17:43] LABS: COVID-19 PCR Negative (Negative)
--- NOTE | 2023-02-15 18:08 | HPE_ITS ---
Date of service: 02/15/23 Time of Service: 18:08 Assessment and Plan Assessment and plan (1) Pancytopenia: Status: Acute Assessment and plan: WBC 4.32; RBC 2.32; Hgb 7.6 ? down from visit 02/09/2023 which was 12.2; HCT 21.8, down from 02/09/23 34.0; PLT 128; One unit of blood given - recheck Hgb post transfusion, suspect he will need more blood Stool heme neg in ED Monitor labs (2) DAINA (acute kidney injury): Status: Acute Assessment and plan: Creatinine 2.6 BUN 32 up from baseline - IVF; no urinary retention or complaints Monitor No CTA done setting of DAINA - doubt PE, not hypoxic, no tachycardia (3) Purpura: Status: Acute Assessment and plan: Bilateral legs to groin L>R monitor (4) Alcoholism: Status: Acute Assessment and plan: Drinks 6 beer a day; states he haver had withdrawal - monitor for any signs (5) Hypertension: Status: Chronic Assessment and plan: Borderline hypotension here with SBP ~ 100 Hold Losartin and spironolactone in setting of DAINA (6) Vasculitis: Status: Acute Assessment and plan: As above (7) DVT prophylaxis: Status: Acute Assessment and plan: SCD; no chemical prophylaxis in setting of pancytopenia (8) Discharge planning issues: Status: Acute Assessment and plan: Home when medically stable Discussed with Dr Busch History of Present Illness History of Present Illness Chief Complaint: Shortness of breath; pancytopenia Narrative: This is a 57 yo male patient with a past medical history of hypertension who denies smoking or drug use other than marijuana occasionally though does drink alcohol frequently, reports six beer every day, has never had withdrawal, who comes in to the [facility] ED via EMS with shortness of breath for 3 weeks. He was seen at the [facility] ED for epistaxis on 02/09 and d/c'd home. He stated he had nasal mucous with some blood tinge in it since, but no abel bleeding. He has also noticed occasional chest tightness, denied diaphoresis, n/v, or radiation of pain. He arrived to the ED stable, speaking clearly in full sentences with stab le vitals, question of hypotension, no tachycardia or hypoxia. He looks sick. He had clear lungs, soft nontender abdomen, no calf tenderness. He did have diffuse purpura of both of his legs up to the groin, L>R. POCUS in the ED, per provider, ?appeared normal, question of tiny pericardial effusion though images limited. Labs in the ED show acute changes from last visit, now anemic, thrombocytopenic and leukopenic, has DAINA with GFR less then 30, CTA was held. No hypoxia or tachycardia so unlikely PE. Given acute changes concern for sepsis and possible tick born illness. He remained hemodynamically stable. He gave verbal consent to the ED provider for a rectal exam; he had brown stool guiac n egative.? Labs: WBC 4.32; RBC 2.32; Hgb 706 ? down from visit 02/09/2023 which was 12.2; HCT 21.8, down from 02/09/23 34.0; PLT 128; NA 133, potassium 3.1; BUN 32 Creatinine 2.6 up from 02/09/2023 14 and 1.5; total bilirubin 2.9; CRP 1.51, ESR 5, albumin 2.5; procalcitonin 0.2; covid negative. EKG - sinus rate of 75, KS 161, RBBB, LVH, no STEMI He is being admitted to the medical floor for anemia, possible vasculitis and autoimmune disorders, IVF, PRBCs and monitoring. Discussed with Dr Busch Review of Systems All systems reviewed & are unremarkable except as noted in HPI and below PFSH All Active Problems (Updated 02/15/23 @ 18:35 by Yajaira Whitney NP) DAINA (acute kidney injury) (Acute) Discharge planning issues (Acute) DVT prophylaxis (Acute) Pancytopenia (Acute) Purpura (Acute) Chest pain (Acute) Bleeding nose (Acute) DDD (degenerative disc disease), lumbar (Acute) Obesity (BMI 30.0-34.9) (Acute) Hyperlipemia, mixed (Acute) Sleep disorder (Acute 05/07/17) Dupuytrens contracture (Acute) contracture of the right fifth finger. He has moderate ones of the right fourth and left fourth and fifth. surgery [place] 06/20 Alcoholism (Acute) Low back pain (Acute) Vasculitis (Acute) Hypertension (Chronic) Family History Mother No problems noted. Father Heart disease Neoplasm LUNG/BRAIN Sister No problems noted. Grandfather Heart disease Grandfather No problems noted. Grandmother No problems noted. Grandmother Asthma FAMILY HISTORY Diabetes Depression Myocardial infarction Social History Smoking/Tobacco Use Status: Current every day Tobacco Type: smokeless tobacco Tobacco: How many years used: 42 Smokeless tobacco user: snuff Second Hand Exposure: Yes Smoking risk assessment performed?: Yes Alcohol Intake: current Alcohol Intake frequency: a few times a week Alcohol type: beer Drug use: Occasionally Substance use type: marijuana Household members: friend(s) Housing: house Communication Needs: Hard of Hearing Do you need help understanding health information?: Rarely Pets and animals: Yes Pets and animals: cat(s) Sexually active: Yes Do you think of yourself as: straight/heterosexual Current gender identity: male What is your relationship status?: How often do you talk on the phone with friends or family?: never Panel score (0-1 are the most socially isolated patients): 0 Do you feel safe at home: Yes Do you feel safe in your relationship?: Yes Meds Allergies and Home Medications Allergies Allergy/AdvReac Type Severity Reaction Status Date / Time No Known Allergies Allergy Verified 02/15/23 15:20 Home Medications Medication Instructions Recorded Confirmed Type losartan 100 mg tablet 100 mg PO DAILY #90 tabs 10/01/22 02/15/23 Rx spironolactone 25 mg tablet 25 mg PO DAILY #90 tabs 11/02/22 02/15/23 Rx Exam Narrative Exam Narrative: Ill appearing male supine in bed, awake, alert, conversant, looks tired, pale and slight scleral icterus noted. Const General: cooperative, uncomfortable, no acute distress, well developed, well groomed and ill appearing acutely Nutritional Appearance: average body habitus Orientation: alert, awake and oriented x3 Limitations: altered mental status HENMT Head: normal to inspection Ears: external ears normal General nose exam: external nose normal Mouth: moist mucous membranes Eyes Sclera: scleral abnormality bilaterally (slight icterus) Neck Neck: normal visual inspection Chest Chest: normal inspection of the chest Resp Effort & Inspection: normal respiratory effort and able to speak in complete sentences Auscultation: clear to auscultation bilaterally Cardio Jugular venous pressure: no JVD Rate: regular rate Rhythm: regular rhythm Heart Sounds: S1 normal, S2 normal and no murmurs GI Palpation: soft and nontender Skin Other: Purpura bilateral legs to groin L>R Neuro General: patient alert and patient oriented x3 Psych Mental Status: mental status grossly normal Results Labs 02/16/23 00:25 02/15/23 15:27 Labs: Laboratory Results - last 24 hr 02/15/23 02/15/23 02/15/23 15:27 15:27 15:27 WBC 4.32 L RBC 2.32 L Hgb 7.6 L Hct 21.8 L MCV 94 MCH 32.8 MCHC 34.9 RDW 13.7 Plt Count 128 L MPV 10.1 Immature Gran % 0.5 Neutrophils % 82.3 Band Neutrophils % Lymphocytes % 10.2 Atypical Lymphs % Monocytes % 6.0 Eosinophils % 0.5 Basophils % 0.5 Metamyelocytes % Myelocytes % Promyelocytes % Other Cells % Nucleated RBC % 0.0 Absolute Neutrophils 3.56 Absolute Lymphocytes 0.44 L Absolute Monocytes 0.26 Absolute Eosinophils 0.02 Absolute Basophils 0.02 RBC Morphology Polychromasia Hypochromasia Poikilocytosis Basophilic Stippling Anisocytosis Microcytosis Macrocytosis Spherocytes Tear Drop Cells Ovalocytes Stomatocytes [place] Bodies Ilya Cells/Echinocytes Acanthocytes (Spur) Schistocytes ESR PT 10.4 INR 1.0 APTT 24.6 VBG pH VBG pCO2 VBG pO2 VBG HCO3 VBG Total CO2 VBG O2 Saturation VBG Base Excess Sodium 133 L Potassium 3.1 L Chloride 101 Carbon Dioxide 21.7 Anion Gap 10.3 BUN 32 H Creatinine 2.6 H Est GFR (CKD-EPI 2020) 28.24 Glucose 114 H Calcium 8.3 L Magnesium 2.1 Total Bilirubin 2.9 H Conjugated Bilirubin 0.8 H AST 17 ALT 32 Alkaline Phosphatase 99 Troponin I < 50 C-Reactive Protein NT-Pro-B Natriuret Pep 197 Total Protein 5.9 L Albumin 2.5 L Procalcitonin TSH 2.21 Ethyl Alcohol < 3.0 COVID-19 Source SARS-CoV-2 (PCR) Patient ABO/Rh Antibody Screen 02/15/23 02/15/23 02/15/23 15:27 15:27 15:27 WBC RBC Hgb Hct MCV MCH MCHC RDW Plt Count MPV Immature Gran % Neutrophils % Band Neutrophils % Lymphocytes % Atypical Lymphs % Monocytes % Eosinophils % Basophils % Metamyelocytes % Myelocytes % Promyelocytes % Other Cells % Nucleated RBC % Absolute Neutrophils Absolute Lymphocytes Absolute Monocytes Absolute Eosinophils Absolute Basophils RBC Morphology Polychromasia Hypochromasia Poikilocytosis Basophilic Stippling Anisocytosis Microcytosis Macrocytosis Spherocytes Tear Drop Cells Ovalocytes Stomatocytes [place] Bodies Viola Cells/Echinocytes Acanthocytes ([place]) Schistocytes ESR 5 PT INR APTT VBG pH 7.47 H VBG pCO2 30 L VBG pO2 26 VBG HCO3 22 L VBG Total CO2 21 L VBG O2 Saturation 51 VBG Base Excess -2 Sodium Potassium Chloride Carbon Dioxide Anion Gap BUN Creatinine Est GFR (CKD-EPI 2020) Glucose Calcium Magnesium Total Bilirubin Conjugated Bilirubin AST ALT Alkaline Phosphatase Troponin I C-Reactive Protein 1.51 H NT-Pro-B Natriuret Pep Total Protein Albumin Procalcitonin TSH Ethyl Alcohol COVID-19 Source SARS-CoV-2 (PCR) Patient ABO/Rh Antibody Screen 02/15/23 02/15/23 02/15/23 16:14 16:19 16:19 WBC RBC Hgb Hct MCV MCH MCHC RDW Plt Count MPV Immature Gran % Neutrophils % Band Neutrophils % Lymphocytes % Atypical Lymphs % Monocytes % Eosinophils % Basophils % Metamyelocytes % Myelocytes % Promyelocytes % Other Cells % Nucleated RBC % Absolute Neutrophils Absolute Lymphocytes Absolute Monocytes Absolute Eosinophils Absolute Basophils RBC Morphology Polychromasia Hypochromasia Poikilocytosis Basophilic Stippling Anisocytosis Microcytosis Macrocytosis Spherocytes Tear Drop Cells Ovalocytes Stomatocytes [place] Bodies Viola Cells/Echinocytes Acanthocytes ([place]ur) Schistocytes ESR PT INR APTT VBG pH VBG pCO2 VBG pO2 VBG HCO3 VBG Total CO2 VBG O2 Saturation VBG Base Excess Sodium Potassium Chloride Carbon Dioxide Anion Gap BUN Creatinine Est GFR (CKD-EPI 2020) Glucose Calcium Magnesium Total Bilirubin Conjugated Bilirubin AST ALT Alkaline Phosphatase Troponin I C-Reactive Protein NT-Pro-B Natriuret Pep Total Protein Albumin Procalcitonin 0.2 TSH Ethyl Alcohol COVID-19 Source Nasal/Nares SARS-CoV-2 (PCR) Negative Patient ABO/Rh O Negative Antibody Screen NEGATIVE 02/15/23 02/15/23 02/15/23 17:12 17:22 20:00 WBC Cancelled RBC Cancelled Hgb Cancelled Hct Cancelled MCV Cancelled MCH Cancelled MCHC Cancelled RDW Cancelled Plt Count Cancelled MPV Cancelled Immature Gran % Cancelled Neutrophils % Cancelled Band Neutrophils % Cancelled Lymphocytes % Cancelled Atypical Lymphs % Cancelled Monocytes % Cancelled Eosinophils % Cancelled Basophils % Cancelled Metamyelocytes % Cancelled Myelocytes % Cancelled Promyelocytes % Cancelled Other Cells % Cancelled Nucleated RBC % Cancelled Absolute Neutrophils Cancelled Absolute Lymphocytes Cancelled Absolute Monocytes Cancelled Absolute Eosinophils Cancelled Absolute Basophils Cancelled RBC Morphology Cancelled Polychromasia Cancelled Hypochromasia Cancelled Poikilocytosis Cancelled Basophilic Stippling Cancelled Anisocytosis Cancelled Microcytosis Cancelled Macrocytosis Cancelled Spherocytes Cancelled Tear Drop Cells Cancelled Ovalocytes Cancelled Stomatocytes Cancelled [place] Bodies Cancelled Viola Cells/Echinocytes Cancelled Acanthocytes ([place]) Cancelled Schistocytes Cancelled ESR PT INR APTT VBG pH VBG pCO2 VBG pO2 VBG HCO3 VBG Total CO2 VBG O2 Saturation VBG Base Excess Sodium Cancelled Potassium Cancelled Chloride Cancelled Carbon Dioxide Cancelled Anion Gap Cancelled BUN Cancelled Creatinine Cancelled Est GFR (CKD-EPI 2020) Cancelled Glucose Cancelled Calcium Cancelled Magnesium Total Bilirubin Cancelled Conjugated Bilirubin AST Cancelled ALT Cancelled Alkaline Phosphatase Cancelled Troponin I C-Reactive Protein NT-Pro-B Natriuret Pep Total Protein Cancelled Albumin Cancelled Procalcitonin TSH Ethyl Alcohol COVID-19 Source Cancelled SARS-CoV-2 (PCR) Cancelled Patient ABO/Rh Antibody Screen Last Vital Signs Temp 36.8 C 02/15/23 15:16 Pulse 80 02/15/23 15:16 Resp 22 02/15/23 15:35 BP 113/59 L 02/15/23 15:16 Pulse Ox 100 02/15/23 15:16 Time Spent Time spent with Patient: 55-74 minutes Time was spent: preparing to see the patient(eg.review tests), obtaining and/or reviewing separately otained hiistory, ordering medications,tests, procedures, referring, communicating with other health wild animal caretaker, indepentently interpreting results, counseling the patient and care coordination
--- NOTE | 2023-02-15 18:29 | NUR.NOTE ---
lab asked multiple times to draw second set of blood cultures while pt was in ED
[2023-02-15] MEDS: Normal Saline 1,000 ML 75 ML IV (19:13)
[2023-02-15 20:36] LABS: Troponin I < 50 ng/L (<or=60)
[2023-02-15] MEDS: DOXYCYCLINE 100 MG in Normal Saline 100 ML IVPB (21:30)
[2023-02-15 21:45] LABS: Lab Add On Test DONE
[2023-02-15] MEDS: Mylanta Suspension 30 ML CUP PO (21:45)
[2023-02-15 22:04] LABS: LDH 125 U/L (85-227)
[2023-02-16] VITALS (24 sets, daily range): BP systolic 90–135; BP diastolic 50–75; PULSE 64–81; RESP 14–20; TEMP 36.8–37.7; O2SAT 96–100
[2023-02-16 00:33] LABS: Abs Immature Grans 0.02 10^3/uL (0.0-0.06); Absolute Basophil Count 0.02 10^3/uL (0.0-0.2); Absolute Eosinophil Count 0.05 10^3/uL (0.0-0.7); Absolute Lymphocyte Count 0.84 10^3/uL (1.2-3.4); Absolute Monocyte Count 0.25 10^3/uL (0.1-0.8); Absolute Neutrophil Count 2.28 10^3/uL (1.2-6.7); Basophils % 0.6; Eosinophils % 1.4; HCT 21.5 % (40.0-50.0); HGB 7.4 g/dL (13.5-17.5); Immature Grans % 0.6; Lymphocytes % 24.3; MCH 32.2 pg (27.0-33.0); MCHC 34.4 % (32.0-36.0); MCV 94 fL (80-95); MPV 9.9 fL (8.0-11.0); Monocytes % 7.2; Neutrophils % 65.9; Platelet Count 104 10^3/uL (130-400); RDW 14.6 % (11.8-14.1); WBC 3.46 10^3/uL (4.4-10.8)
[2023-02-16 05:11] LABS: Bilirubin Small (Negative); Blood Moderate (Negative); Clarity Sl Cloudy (Clear); Glucose Negative (Negative); Ketones Trace mg/dL (Negative); Leukocyte Esterase Negative (Negative); Nitrite Positive (Negative); Specific Gravity 1.015 (1.005-1.025)
[2023-02-16 05:20] LABS: Bacteria Few HPF (Negative); C & S Indicated? Yes; Casts 0-2 Coarse Granular LPF (Negative); Crystals Negative HPF (Negative); Epithelial Cells Rare HPF (Negative); Mucus Negative (Negative)
[2023-02-16 07:28] LABS: Abs Immature Grans 0.01 10^3/uL (0.0-0.06); Absolute Basophil Count 0.01 10^3/uL (0.0-0.2); Absolute Eosinophil Count 0.05 10^3/uL (0.0-0.7); Absolute Lymphocyte Count 0.72 10^3/uL (1.2-3.4); Absolute Monocyte Count 0.23 10^3/uL (0.1-0.8); Absolute Neutrophil Count 2.21 10^3/uL (1.2-6.7); Basophils % 0.3; Eosinophils % 1.5; Immature Grans % 0.3; Lymphocytes % 22.3; MCH 31.7 pg (27.0-33.0); MCHC 33.5 % (32.0-36.0); MCV 95 fL (80-95); MPV 10.7 fL (8.0-11.0); Monocytes % 7.1; Neutrophils % 68.5; Platelet Count 116 10^3/uL (130-400); RBC 2.21 10^6/uL (4.36-5.78); RDW 14.6 % (11.8-14.1); RDW-SD 49.9 fL; WBC 3.23 10^3/uL (4.4-10.8)
[2023-02-16] MEDS: Normal Saline 1,000 ML 75 ML IV (07:33)
[2023-02-16 07:35] LABS: HCT 20.9 % (40.0-50.0)
[2023-02-16] MEDS: Acetaminophen 325 MG TAB PO (07:42)
[2023-02-16 07:49] LABS: ALT 27 U/L (16-63); AST 17 U/L (15-37); Albumin 2.2 g/dL (3.4-5.0); Alkaline Phosphatase 92 U/L (46-116); Anion Gap 9.2 mmol/L (3-11); BUN 33 mg/dL (7-18); Bilirubin, Total 1.9 mg/dL (0.2-1.0); C-Reactive Protein 1.39 mg/dL (0.0-0.3); CO2 22.8 mmol/L (21.0-32.0); CREATININE 2.2 mg/dL (0.70-1.30); Calcium 7.9 mg/dL (8.5-10.1); Chloride 104 mmol/L (98-107); Estimated GFR 34.51 (mL/min/1.73m2); Glucose 100 mg/dL (74-106); Magnesium 2.4 mg/dL (1.8-2.4); Potassium 3.5 mmol/L (3.5-5.1); Sodium 136 mmol/L (136-145); Total Protein 5.4 g/dL (6.4-8.2)
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
[2023-02-16] MEDS: DOXYCYCLINE 100 MG in Normal Saline 100 ML IVPB ×2 (10:09→21:22)
--- NOTE | 2023-02-16 10:59 | W.PM.PROGNOT ---
Date of Service Date of service: 02/16/23 Time of Service: 11:00 Assessment and Plan Assessment and plan (1) Pancytopenia: Status: Acute Assessment and plan: Hemoglobin down to 7 after one unit of PRBC. will transfuse 2 units today Stool heme neg in ED Monitor labs (2) DAINA (acute kidney injury): Status: Acute Assessment and plan: continue IVF; no urinary retention or complaints avoid nephrotoxic drugs Monitor No CTA done setting of DAINA - doubt PE, not hypoxic, no tachycardia (3) Purpura: Status: Acute Assessment and plan: Bilateral legs to groin L>R monitor (4) Alcoholism: Status: Acute Assessment and plan: Drinks 6 beer a day; states he haver had withdrawal - monitor for any signs (5) Hypertension: Status: Chronic Assessment and plan: Borderline hypotension here with SBP ~ 100 Hold Losartan and spironolactone in setting of DAINA (6) Vasculitis: Status: Acute Assessment and plan: As above (7) DVT prophylaxis: Status: Acute Assessment and plan: SCD; no chemical prophylaxis in setting of pancytopenia (8) Discharge planning issues: Status: Acute Assessment and plan: Home when medically stable Discussed with Dr Busch Subjective Subjective Patient reports: tolerating liquids well, tolerating a regular diet and other (reports lightheadedness when out of bed. no chest pain or shortness of breath) Interval history since last seen: edema and bruising to bilateral lower extremities has been ongoing Exam Const General: cooperative, no acute distress and ill appearing acutely Orientation: alert, awake and oriented x3 HENMT Head: normal to inspection Ears: external ears normal General nose exam: external nose normal Mouth: moist mucous membranes Eyes Sclera: scleral abnormality bilaterally (slight icterus) Neck Neck: normal visual inspection Chest Chest: normal inspection of the chest Resp Effort & Inspection: normal respiratory effort and able to speak in complete sentences Auscultation: clear to auscultation bilaterally Cardio Jugular venous pressure: no JVD Rate: regular rate Rhythm: regular rhythm GI Palpation: soft and nontender Skin General skin exam: ecchymosis (bilateral lower extremities, extensive) Rashes: no rashes Neuro General: patient alert and patient oriented x3 Psych Mental Status: mental status grossly normal Objective Last Vital Signs Temp 37.2 C 02/16/23 09:15 Pulse 81 02/16/23 09:15 Resp 18 02/16/23 09:15 BP 102/63 02/16/23 09:15 Pulse Ox 98 02/16/23 09:15 Laboratory Results - last 24 hr 02/15/23 02/15/23 02/15/23 15:27 15:27 15:27 WBC 4.32 L RBC 2.32 L Hgb 7.6 L Hct 21.8 L MCV 94 MCH 32.8 MCHC 34.9 RDW 13.7 Plt Count 128 L MPV 10.1 Immature Gran % 0.5 Neutrophils % 82.3 Band Neutrophils % Lymphocytes % 10.2 Atypical Lymphs % Monocytes % 6.0 Eosinophils % 0.5 Basophils % 0.5 Metamyelocytes % Myelocytes % Promyelocytes % Other Cells % Nucleated RBC % 0.0 Absolute Neutrophils 3.56 Absolute Lymphocytes 0.44 L Absolute Monocytes 0.26 Absolute Eosinophils 0.02 Absolute Basophils 0.02 RBC Morphology Polychromasia Hypochromasia Poikilocytosis Basophilic Stippling Anisocytosis Microcytosis Macrocytosis Spherocytes Tear Drop Cells Ovalocytes Stomatocytes [place] Bodies Ilya Cells/Echinocytes Acanthocytes (Spur) Schistocytes ESR PT 10.4 INR 1.0 APTT 24.6 VBG pH VBG pCO2 VBG pO2 VBG HCO3 VBG Total CO2 VBG O2 Saturation VBG Base Excess Sodium 133 L Potassium 3.1 L Chloride 101 Carbon Dioxide 21.7 Anion Gap 10.3 BUN 32 H Creatinine 2.6 H Est GFR (CKD-EPI 2020) 28.24 Glucose 114 H Calcium 8.3 L Magnesium 2.1 Total Bilirubin 2.9 H Conjugated Bilirubin 0.8 H AST 17 ALT 32 Alkaline Phosphatase 99 Lactate Dehydrogenase Troponin I < 50 C-Reactive Protein NT-Pro-B Natriuret Pep 197 Total Protein 5.9 L Albumin 2.5 L Procalcitonin TSH 2.21 Urine Color Urine Clarity Urine pH Ur Specific [place] Urine Protein Urine Ketones Urine Blood Urine Nitrite Urine Bilirubin Urine Urobilinogen Ur Leukocyte Esterase Urine RBC Urine WBC Ur Epithelial Cells Urine Crystals Urine Bacteria Urine Casts Urine Mucus Ur Culture Indicated? Urine Glucose Ethyl Alcohol < 3.0 COVID-19 Source SARS-CoV-2 (PCR) Add-On Test Request Patient ABO/Rh Antibody Screen Crossmatch 02/15/23 02/15/23 02/15/23 15:27 15:27 15:27 WBC RBC Hgb Hct MCV MCH MCHC RDW Plt Count MPV Immature Gran % Neutrophils % Band Neutrophils % Lymphocytes % Atypical Lymphs % Monocytes % Eosinophils % Basophils % Metamyelocytes % Myelocytes % Promyelocytes % Other Cells % Nucleated RBC % Absolute Neutrophils Absolute Lymphocytes Absolute Monocytes Absolute Eosinophils Absolute Basophils RBC Morphology Polychromasia Hypochromasia Poikilocytosis Basophilic Stippling Anisocytosis Microcytosis Macrocytosis Spherocytes Tear Drop Cells Ovalocytes Stomatocytes [place] Bodies Ilya Cells/Echinocytes Acanthocytes (Spur) Schistocytes ESR 5 PT INR APTT VBG pH 7.47 H VBG pCO2 30 L VBG pO2 26 VBG HCO3 22 L VBG Total CO2 21 L VBG O2 Saturation 51 VBG Base Excess -2 Sodium Potassium Chloride Carbon Dioxide Anion Gap BUN Creatinine Est GFR (CKD-EPI 2020) Glucose Calcium Magnesium Total Bilirubin Conjugated Bilirubin AST ALT Alkaline Phosphatase Lactate Dehydrogenase Troponin I C-Reactive Protein 1.51 H NT-Pro-B Natriuret Pep Total Protein Albumin Procalcitonin TSH Urine Color Urine Clarity Urine pH Ur Specific [place] Urine Protein Urine Ketones Urine Blood Urine Nitrite Urine Bilirubin Urine Urobilinogen Ur Leukocyte Esterase Urine RBC Urine WBC Ur Epithelial Cells Urine Crystals Urine Bacteria Urine Casts Urine Mucus Ur Culture Indicated? Urine Glucose Ethyl Alcohol COVID-19 Source SARS-CoV-2 (PCR) Add-On Test Request Patient ABO/Rh Antibody Screen Crossmatch 02/15/23 02/15/23 02/15/23 16:14 16:19 16:19 WBC RBC Hgb Hct MCV MCH MCHC RDW Plt Count MPV Immature Gran % Neutrophils % Band Neutrophils % Lymphocytes % Atypical Lymphs % Monocytes % Eosinophils % Basophils % Metamyelocytes % Myelocytes % Promyelocytes % Other Cells % Nucleated RBC % Absolute Neutrophils Absolute Lymphocytes Absolute Monocytes Absolute Eosinophils Absolute Basophils RBC Morphology Polychromasia Hypochromasia Poikilocytosis Basophilic Stippling Anisocytosis Microcytosis Macrocytosis Spherocytes Tear Drop Cells Ovalocytes Stomatocytes [place] Bodies Ilya Cells/Echinocytes Acanthocytes (Spur) Schistocytes ESR PT INR APTT VBG pH VBG pCO2 VBG pO2 VBG HCO3 VBG Total CO2 VBG O2 Saturation VBG Base Excess Sodium Potassium Chloride Carbon Dioxide Anion Gap BUN Creatinine Est GFR (CKD-EPI 2020) Glucose Calcium Magnesium Total Bilirubin Conjugated Bilirubin AST ALT Alkaline Phosphatase Lactate Dehydrogenase Troponin I C-Reactive Protein NT-Pro-B Natriuret Pep Total Protein Albumin Procalcitonin 0.2 TSH Urine Color Urine Clarity Urine pH Ur Specific [place] Urine Protein Urine Ketones Urine Blood Urine Nitrite Urine Bilirubin Urine Urobilinogen Ur Leukocyte Esterase Urine RBC Urine WBC Ur Epithelial Cells Urine Crystals Urine Bacteria Urine Casts Urine Mucus Ur Culture Indicated? Urine Glucose Ethyl Alcohol COVID-19 Source Nasal/Nares SARS-CoV-2 (PCR) Negative Add-On Test Request Patient ABO/Rh O Negative Antibody Screen NEGATIVE Crossmatch See Detail 02/15/23 02/15/23 02/15/23 16:19 17:12 17:22 WBC RBC Hgb Hct MCV MCH MCHC RDW Plt Count MPV Immature Gran % Neutrophils % Band Neutrophils % Lymphocytes % Atypical Lymphs % Monocytes % Eosinophils % Basophils % Metamyelocytes % Myelocytes % Promyelocytes % Other Cells % Nucleated RBC % Absolute Neutrophils Absolute Lymphocytes Absolute Monocytes Absolute Eosinophils Absolute Basophils RBC Morphology Polychromasia Hypochromasia Poikilocytosis Basophilic Stippling Anisocytosis Microcytosis Macrocytosis Spherocytes Tear Drop Cells Ovalocytes Stomatocytes [place] Bodies Ilya Cells/Echinocytes Acanthocytes (Spur) Schistocytes ESR PT INR APTT VBG pH VBG pCO2 VBG pO2 VBG HCO3 VBG Total CO2 VBG O2 Saturation VBG Base Excess Sodium Cancelled Potassium Cancelled Chloride Cancelled Carbon Dioxide Cancelled Anion Gap Cancelled BUN Cancelled Creatinine Cancelled Est GFR (CKD-EPI 2020) Cancelled Glucose Cancelled Calcium Cancelled Magnesium Total Bilirubin Cancelled Conjugated Bilirubin AST Cancelled ALT Cancelled Alkaline Phosphatase Cancelled Lactate Dehydrogenase 125 Troponin I C-Reactive Protein NT-Pro-B Natriuret Pep Total Protein Cancelled Albumin Cancelled Procalcitonin TSH Urine Color Urine Clarity Urine pH Ur Specific [place] Urine Protein Urine Ketones Urine Blood Urine Nitrite Urine Bilirubin Urine Urobilinogen Ur Leukocyte Esterase Urine RBC Urine WBC Ur Epithelial Cells Urine Crystals Urine Bacteria Urine Casts Urine Mucus Ur Culture Indicated? Urine Glucose Ethyl Alcohol COVID-19 Source Cancelled SARS-CoV-2 (PCR) Cancelled Add-On Test Request Patient ABO/Rh Antibody Screen Crossmatch 02/15/23 02/15/23 02/15/23 20:00 20:05 21:43 WBC Cancelled RBC Cancelled Hgb Cancelled Hct Cancelled MCV Cancelled MCH Cancelled MCHC Cancelled RDW Cancelled Plt Count Cancelled MPV Cancelled Immature Gran % Cancelled Neutrophils % Cancelled Band Neutrophils % Cancelled Lymphocytes % Cancelled Atypical Lymphs % Cancelled Monocytes % Cancelled Eosinophils % Cancelled Basophils % Cancelled Metamyelocytes % Cancelled Myelocytes % Cancelled Promyelocytes % Cancelled Other Cells % Cancelled Nucleated RBC % Cancelled Absolute Neutrophils Cancelled Absolute Lymphocytes Cancelled Absolute Monocytes Cancelled Absolute Eosinophils Cancelled Absolute Basophils Cancelled RBC Morphology Cancelled Polychromasia Cancelled Hypochromasia Cancelled Poikilocytosis Cancelled Basophilic Stippling Cancelled Anisocytosis Cancelled Microcytosis Cancelled Macrocytosis Cancelled Spherocytes Cancelled Tear Drop Cells Cancelled Ovalocytes Cancelled Stomatocytes Cancelled [place] Bodies Cancelled Ilya Cells/Echinocytes Cancelled Acanthocytes (Spur) Cancelled Schistocytes Cancelled ESR PT INR APTT VBG pH VBG pCO2 VBG pO2 VBG HCO3 VBG Total CO2 VBG O2 Saturation VBG Base Excess Sodium Potassium Chloride Carbon Dioxide Anion Gap BUN Creatinine Est GFR (CKD-EPI 2020) Glucose Calcium Magnesium Total Bilirubin Conjugated Bilirubin AST ALT Alkaline Phosphatase Lactate Dehydrogenase Troponin I < 50 C-Reactive Protein NT-Pro-B Natriuret Pep Total Protein Albumin Procalcitonin TSH Urine Color Urine Clarity Urine pH Ur Specific [place] Urine Protein Urine Ketones Urine Blood Urine Nitrite Urine Bilirubin Urine Urobilinogen Ur Leukocyte Esterase Urine RBC Urine WBC Ur Epithelial Cells Urine Crystals Urine Bacteria Urine Casts Urine Mucus Ur Culture Indicated? Urine Glucose Ethyl Alcohol COVID-19 Source SARS-CoV-2 (PCR) Add-On Test Request DONE Patient ABO/Rh Antibody Screen Crossmatch 02/16/23 02/16/23 02/16/23 00:25 04:55 05:35 WBC 3.46 L RBC 2.30 L Hgb 7.4 L Hct 21.5 L MCV 94 MCH 32.2 MCHC 34.4 RDW 14.6 H Plt Count 104 L MPV 9.9 Immature Gran % 0.6 Neutrophils % 65.9 Band Neutrophils % Lymphocytes % 24.3 Atypical Lymphs % Monocytes % 7.2 Eosinophils % 1.4 Basophils % 0.6 Metamyelocytes % Myelocytes % Promyelocytes % Other Cells % Nucleated RBC % 0.0 Absolute Neutrophils 2.28 Absolute Lymphocytes 0.84 L Absolute Monocytes 0.25 Absolute Eosinophils 0.05 Absolute Basophils 0.02 RBC Morphology Polychromasia Hypochromasia Poikilocytosis Basophilic Stippling Anisocytosis Microcytosis Macrocytosis Spherocytes Tear Drop Cells Ovalocytes Stomatocytes [place] Bodies [place] Cells/Echinocytes Acanthocytes (Spur) Schistocytes ESR PT INR APTT VBG pH VBG pCO2 VBG pO2 VBG HCO3 VBG Total CO2 VBG O2 Saturation VBG Base Excess Sodium Cancelled Potassium Cancelled Chloride Cancelled Carbon Dioxide Cancelled Anion Gap Cancelled BUN Cancelled Creatinine Cancelled Est GFR (CKD-EPI 2020) Cancelled Glucose Cancelled Calcium Cancelled Magnesium Total Bilirubin Cancelled Conjugated Bilirubin AST Cancelled ALT Cancelled Alkaline Phosphatase Cancelled Lactate Dehydrogenase Troponin I C-Reactive Protein NT-Pro-B Natriuret Pep Total Protein Cancelled Albumin Cancelled Procalcitonin TSH Urine Color Judi Urine Clarity Sl Cloudy Urine pH 5.0 Ur Specific [place] 1.015 Urine Protein Negative Urine Ketones Trace H Urine Blood Moderate H Urine Nitrite Positive H Urine Bilirubin Small H Urine Urobilinogen 2.0 H Ur Leukocyte Esterase Negative Urine RBC 10-20 H Urine WBC 3-5 Ur Epithelial Cells Rare Urine Crystals Negative Urine Bacteria Few Urine Casts 0-2 Coarse Granular Urine Mucus Negative Ur Culture Indicated? Yes Urine Glucose Negative Ethyl Alcohol COVID-19 Source SARS-CoV-2 (PCR) Add-On Test Request Patient ABO/Rh Antibody Screen Crossmatch 02/16/23 02/16/23 06:18 06:18 WBC 3.23 L RBC 2.21 L Hgb 7.0 L* Hct 20.9 L* MCV 95 MCH 31.7 MCHC 33.5 RDW 14.6 H Plt Count 116 L MPV 10.7 Immature Gran % 0.3 Neutrophils % 68.5 Band Neutrophils % Lymphocytes % 22.3 Atypical Lymphs % Monocytes % 7.1 Eosinophils % 1.5 Basophils % 0.3 Metamyelocytes % Myelocytes % Promyelocytes % Other Cells % Nucleated RBC % 0.0 Absolute Neutrophils 2.21 Absolute Lymphocytes 0.72 L Absolute Monocytes 0.23 Absolute Eosinophils 0.05 Absolute Basophils 0.01 RBC Morphology Polychromasia Hypochromasia Poikilocytosis Basophilic Stippling Anisocytosis Microcytosis Macrocytosis Spherocytes Tear Drop Cells Ovalocytes Stomatocytes [place] Bodies Ilya Cells/Echinocytes Acanthocytes (Spur) Schistocytes ESR PT INR APTT VBG pH VBG pCO2 VBG pO2 VBG HCO3 VBG Total CO2 VBG O2 Saturation VBG Base Excess Sodium 136 Potassium 3.5 Chloride 104 Carbon Dioxide 22.8 Anion Gap 9.2 BUN 33 H Creatinine 2.2 H Est GFR (CKD-EPI 2020) 34.51 Glucose 100 Calcium 7.9 L Magnesium 2.4 Total Bilirubin 1.9 H Conjugated Bilirubin AST 17 ALT 27 Alkaline Phosphatase 92 Lactate Dehydrogenase Troponin I C-Reactive Protein 1.39 H NT-Pro-B Natriuret Pep Total Protein 5.4 L Albumin 2.2 L Procalcitonin TSH Urine Color Urine Clarity Urine pH Ur Specific [place] Urine Protein Urine Ketones Urine Blood Urine Nitrite Urine Bilirubin Urine Urobilinogen Ur Leukocyte Esterase Urine RBC Urine WBC Ur Epithelial Cells Urine Crystals Urine Bacteria Urine Casts Urine Mucus Ur Culture Indicated? Urine Glucose Ethyl Alcohol COVID-19 Source SARS-CoV-2 (PCR) Add-On Test Request Patient ABO/Rh Antibody Screen Crossmatch Time Spent with Patient Time Spent with Patient: 25-34 minutes Time was spent: preparing to see the patient(eg.review tests), obtaining and/or reviewing separately otained hiistory, ordering medications,tests, procedures, indepentently interpreting results and counseling the patient
[2023-02-16] MEDS: Normal Saline Flush 10 ML SYR IVP ×3 (13:13→15:55)
[2023-02-16] MEDS: Furosemide 20 MG/2 ML VIAL IVP (15:55)
--- NOTE | 2023-02-16 16:04 | CHAPLAIN ---
Eleuterio was resting in bed when I visited. I explained my role and offered support. Eleuterio told me he's from [place] and he expects his son will be in later today.
[2023-02-16] MEDS: cefTRIAXone 2 GM/50 ML BAG IVPB (16:44)
[2023-02-17 03:07] VITALS: BP 128/72; PULSE 66; RESP 16; TEMP 36.3; O2SAT 98
[2023-02-17 07:25] LABS: Abs Immature Grans 0.02 10^3/uL (0.0-0.06); Absolute Basophil Count 0.01 10^3/uL (0.0-0.2); Absolute Eosinophil Count 0.04 10^3/uL (0.0-0.7); Absolute Lymphocyte Count 0.78 10^3/uL (1.2-3.4); Absolute Monocyte Count 0.16 10^3/uL (0.1-0.8); Absolute Neutrophil Count 1.52 10^3/uL (1.2-6.7); Basophils % 0.4; Eosinophils % 1.6; HCT 26.5 % (40.0-50.0); Immature Grans % 0.8; Lymphocytes % 30.8; MCH 31.8 pg (27.0-33.0); MCV 94 fL (80-95); MPV 10.4 fL (8.0-11.0); Monocytes % 6.3; Neutrophils % 60.1; Platelet Count 117 10^3/uL (130-400); RBC 2.83 10^6/uL (4.36-5.78); RDW 14.6 % (11.8-14.1); RDW-SD 50.4 fL; WBC 2.53 10^3/uL (4.4-10.8)
[2023-02-17 07:43] VITALS: BP 117/70; PULSE 67; RESP 16; TEMP 36.5; O2SAT 100
[2023-02-17 07:45] LABS: ALT 30 U/L (16-63); AST 23 U/L (15-37); Albumin 2.5 g/dL (3.4-5.0); Alkaline Phosphatase 101 U/L (46-116); Anion Gap 8.4 mmol/L (3-11); BUN 25 mg/dL (7-18); Bilirubin, Total 1.8 mg/dL (0.2-1.0); CO2 25.6 mmol/L (21.0-32.0); CREATININE 1.5 mg/dL (0.70-1.30); Calcium 8.3 mg/dL (8.5-10.1); Chloride 105 mmol/L (98-107); Estimated GFR 54.64 (mL/min/1.73m2); Glucose 94 mg/dL (74-106); Potassium 3.5 mmol/L (3.5-5.1); Sodium 139 mmol/L (136-145)
--- NOTE | 2023-02-17 08:22 | PDOC.CMPRO ---
Date of service: 02/17/23 Time of Service: 08:22 Care Management Progress Note Progress Note Text Progress Note Text: S/O:Mikael was sitting up in bed when CM met with him. He was pleasant and engaged easily with CM. Mikael talked a bit about his financial challenges for the past year. He has been unable to work due to the pain in his legs and back. Mikael stated that he was diagnosed with vasculitis 3 years ago but was unable to see a specialist because of Covid. He did say that since October things have gotten a little easier as he was able to pay off his mortgage and has been receiving disability from work. With mikael's permission, CM sent a referral to [facility] yesterday to see if there are any services he may be eligible for. A: Mikael is a 57 year old man admitted on 02/15/23 with pancytopenia P:Anticipate Mikael will discharge home when medically cleared. He will follow up with community providers and plan of care and transport with family. CM will follow and support discharge planning needs.
[2023-02-17 09:55] LABS: Haptoglobin 138 mg/dL (32-197)
[2023-02-17] MEDS: DOXYCYCLINE 100 MG in Normal Saline 100 ML IVPB (10:11)
[2023-02-17] MEDS: Normal Saline Flush 10 ML SYR IVP (10:12)
--- NOTE | 2023-02-17 10:57 | DSE_ITS ---
Date of service: 02/17/23 Time of Service: 10:57 DS: Diagnosis Discharge Diagnosis (1) Pancytopenia: Status: Acute (2) DAINA (acute kidney injury): Status: Acute (3) Purpura: Status: Acute (4) Alcoholism: Status: Acute (5) Hypertension: Status: Chronic (6) Vasculitis: Status: Acute Discharge Plan Disposition Patient Disposition: Home Condition: Stable Discharge Details Reason For Visit: Dyspnea, Pancytopenia Admit Date/Time: 02/15/23 17:07 Admit Provider: Kaz Busch Attending Provider: Kaz Busch Primary Care Provider: Tariq Saini Hospital Course Hospital Course: This is a 57 yo male patient with a past medical history of hypertension, alcohol abuse disorder, recent ED visit for epitaxis how presented by EMS with shortness of breath. work up in the ED shows pancytopenia, acute kidney injury with GFR less then 30. Differentials in setting of acute changes concern for sepsis and possible tick born illness. He remained hemodynamically stable. His rectal exam showed brown stool guiac negative.? Labs: WBC 4.32; RBC 2.32; Hgb 7.06 ? down from visit 02/09/2023 which was 12.2; HCT 21.8, down from 02/09/23 34.0; PLT 128; NA 133, potassium 3.1; BUN 32 Creatinine 2.6 up from 02/09/2023 14 and 1.5; total bilirubin 2.9; CRP 1.51, ESR 5, albumin 2.5; procalcitonin 0.2; covid negative.? EKG - sinus rate of 75, NC 161, RBBB, LVH, no STEMI. He was admitted to the medical floor for anemia, possible vasculitis and autoimmune disorders. He was given 3 units of PRBC with stabilization of his labs. He was stable for discharge to home. He will need close outpatient pcp follow up for further evaluation and monitoring of lab. His losartan was held in setting of kidney injury which improved. Tick borne panel and further labs pending on discharge. discharge discussed with DR Busch Home Meds and New Rx's Prescriptions: Continued spironolactone 25 mg tablet 25 mg PO DAILY Qty: 90 3RF Held losartan 100 mg tablet 100 mg PO DAILY Qty: 90 3RF Hold Instructions: discuss when to resume with pcp Discharge Instructions Instructions: Pancytopenia (DC) Additional Instructions: avoid alcohol completely. drink 6-8 glasses of water daily to stay well hydrated as you are on diuretics. you will need close follow up with your labs outpatient, please keep pcp appointments. Stand Alone Forms: Nursing Discharge Form Referrals: Tariq Saini LOG CHIPPER OPERATOR [Primary Care Provider] - 03/04/23 8:40 am Activity:: Activity as Tolerated Equipment/Supplies:: No Equipment Needed Diet:: As Tolerated Discharge Orders Discharge Orders: Discharge Order (Routine); Ordered 02/17/23 Ordered By: Anyi Delgadillo Discharge Data Discharge Date/Time-TO BE ENTERED AT DEPARTURE: 02/17/23 13:56 DS: Summary Time Spent with Patient providing and/or coordinating discharge services: Less than 30 minutes Status at Discharge Functional status at discharge: independent ambulation Overall status at discharge: patient is back to baseline Mental Status: mental status grossly normal Speech and Movement: speech and movement normal Mood: congruent mood Affect: normal affect Exam Const General: cooperative, no acute distress and ill appearing acutely Orientation: alert, awake and oriented x3 HENMT Head: normal to inspection Ears: external ears normal General nose exam: external nose normal Mouth: moist mucous membranes Eyes Sclera: scleral abnormality bilaterally (slight icterus) Neck Neck: normal visual inspection Chest Chest: normal inspection of the chest Resp Effort & Inspection: normal respiratory effort and able to speak in complete sentences Auscultation: clear to auscultation bilaterally Cardio Jugular venous pressure: no JVD Rate: regular rate Rhythm: regular rhythm GI Palpation: soft and nontender Skin General skin exam: ecchymosis (bilateral lower extremities, extensive) Rashes: no rashes Neuro General: patient alert and patient oriented x3 Psych Mental Status: mental status grossly normal Speech and Movement: speech and movement normal Mood: congruent mood Affect: normal affect DS: Data Vitals/I&O Vitals and I&O: Vital Signs Temperature 36.5 C 02/17/23 07:43 Temperature Source Tympanic 02/17/23 07:43 Pulse 67 02/17/23 07:43 Pulse Rhythm Regular 02/17/23 07:10 Respiratory Rate 16 02/17/23 07:43 Respiratory Effort Non-Labored, Short of Breath 02/17/23 07:10 Respiratory Depth Normal 02/17/23 07:10 Respiratory Pattern Normal 02/17/23 07:10 Blood Pressure 117/70 02/17/23 07:43 Blood Pressure Position Supine 02/15/23 15:16 Pulse Oximetry 100 02/17/23 07:43 Oxygen Delivery Method Room Air 02/17/23 07:43 Oxygen Flow Rate 0 02/17/23 07:43 Pain Level 4 02/17/23 07:43 Comment Pt. unable to verbalize a numerical pain level at this time, but states, I'm feeling a little better than before. 02/16/23 11:50 Intake & Output 02/16/23 02/16/23 02/17/23 11:59 23:59 11:59 Intake Total 1320 / 2223.5 903.5 / 2223.5 50 / 50 Output Total 350 / 2530 2180 / 2530 1400 / 1400 Balance 970 / -306.5 -1276.5 / -306.5 -1350 / -1350 Weight 113.4 kg Intake: IV 1220 / 1552.5 332.5 / 1552.5 50 / 50 Oral 100 / 100 Blood Product 571 / 571 Rbc Leuko Reduced Unit 285 / 285 [id number] Rbc Leuko Reduced Unit 286 / 286 [id number] Output: Urine 350 / 2530 2180 / 2530 1400 / 1400 Other: Urine Color Light Judi Light Judi Light Judi Urine Appearance Clear Clear Clear Urine Odor Strong None Normal Comment unclear amount mixed with stool Stool Size Smear Voiding Methods Urinal Urinal Urinal Data Completed and Pending Labs on day of discharge: Labs from last 24 hours 02/17/23 02/17/23 02/16/23 07:05 07:05 06:18 WBC 2.53 L RBC 2.83 L Hgb 9.0 L D Hct 26.5 L MCV 94 MCH 31.8 MCHC 34.0 RDW 14.6 H Plt Count 117 L MPV 10.4 Immature Gran % 0.8 Neutrophils % 60.1 Lymphocytes % 30.8 Monocytes % 6.3 Eosinophils % 1.6 Basophils % 0.4 Nucleated RBC % 0.0 Absolute Neutrophils 1.52 Absolute Lymphocytes 0.78 L Absolute Monocytes 0.16 Absolute Eosinophils 0.04 Absolute Basophils 0.01 Sodium 139 Potassium 3.5 Chloride 105 Carbon Dioxide 25.6 Anion Gap 8.4 BUN 25 H Creatinine 1.5 H Est GFR (CKD-EPI 2021) 54.64 Glucose 94 Calcium 8.3 L Total Bilirubin 1.8 H AST 23 ALT 30 Alkaline Phosphatase 101 Total Protein 6.0 L Albumin 2.5 L NAYELI Titer Pending NAYELI Titer 2 Pending NAYELI Titer 3 Pending NAYELI Interpretation Pending c-ANCA Pending p-ANCA Pending SS-A Antibody Pending SS-B Antibody Pending Sm (Macario) Antibody Pending COAL PULVERIZER OPERATOR Antibody Pending Double Strand DNA Ab Pending Glomerular Base Mem IgG Pending Phospholipid IgA Ab Pending Patient ABO/Rh Antibody Screen Crossmatch 02/15/23 16:19 WBC RBC Hgb Hct MCV MCH MCHC RDW Plt Count MPV Immature Gran % Neutrophils % Lymphocytes % Monocytes % Eosinophils % Basophils % Nucleated RBC % Absolute Neutrophils Absolute Lymphocytes Absolute Monocytes Absolute Eosinophils Absolute Basophils Sodium Potassium Chloride Carbon Dioxide Anion Gap BUN Creatinine Est GFR (CKD-EPI 2020) Glucose Calcium Total Bilirubin AST ALT Alkaline Phosphatase Total Protein Albumin NAYELI Titer NAYELI Titer 2 NAYELI Titer 3 NAYELI Interpretation c-ANCA p-ANCA SS-A Antibody SS-B Antibody Sm (Macario) Antibody COAL PULVERIZER OPERATOR Antibody Double Strand DNA Ab Glomerular Base Mem IgG Phospholipid IgA Ab Patient ABO/Rh O Negative Antibody Screen NEGATIVE Crossmatch See Detail Preliminary micro results at discharge 02/16/23 04:55 Urine Culture - Preliminary Urine - Reflex from Ua 02/15/23 16:42 Blood Culture - Preliminary Blood NO GROWTH 24 HOURS 02/15/23 15:27 Blood Culture - Preliminary Blood NO GROWTH 24 HOURS PFSH All Active Problems (Updated 02/18/23 @ 00:04 by MARYBETH DUENAS) DAINA (acute kidney injury) (Acute) Pancytopenia (Acute) Purpura (Acute) Chest pain (Acute) Bleeding nose (Acute) DDD (degenerative disc disease), lumbar (Acute) Obesity (BMI 30.0-34.9) (Acute) Hyperlipemia, mixed (Acute) Sleep disorder (Acute 05/07/17) Dupuytrens contracture (Acute) contracture of the right fifth finger. He has moderate ones of the right fourth and left fourth and fifth. surgery [place] 06/20 Alcoholism (Acute) Low back pain (Acute) Vasculitis (Acute) Hypertension (Chronic) Family History Mother No problems noted. Father Heart disease Neoplasm LUNG/BRAIN Sister No problems noted. Grandfather Heart disease Grandfather No problems noted. Grandmother No problems noted. Grandmother Asthma FAMILY HISTORY Diabetes Depression Myocardial infarction Social History Smoking/Tobacco Use Status: Current every day Tobacco Type: smokeless tobacco Tobacco: How many years used: 42 Smokeless tobacco user: snuff Second Hand Exposure: Yes Smoking risk assessment performed?: Yes Alcohol Intake: current Alcohol Intake frequency: a few times a week Alcohol type: beer Drug use: Occasionally Substance use type: marijuana Household members: friend(s) Housing: house Communication Needs: Hard of Hearing Do you need help understanding health information?: Rarely Pets and animals: Yes Pets and animals: cat(s) Sexually active: Yes Do you think of yourself as: straight/heterosexual Current gender identity: male What is your relationship status?: How often do you talk on the phone with friends or family?: never Panel score (0-1 are the most socially isolated patients): 0 Do you feel safe at home: Yes Do you feel safe in your relationship?: Yes Time Spent with Patient Time Spent with Patient: <45 minutes Time was spent: preparing to see the patient(eg.review tests) and counseling the patient
[2023-02-17 11:09] VITALS: BP 141/74; PULSE 65; RESP 14; TEMP 36.9; O2SAT 99
[2023-02-17 11:15] LABS: Lyme Ab w Rflx to Lyme Confirm Negative (Negative)
[2023-02-17 13:26] LABS: ANCA Interpretation Negative (Negative)
[2023-02-17 13:31] LABS: ANA Interpretation Negative (Negative)
[2023-02-18 10:36] LABS: Glomerular Basement Membr Ab <0.2 U
[2023-02-18 11:55] LABS: c-ANCA Negative (Negative); p-ANCA Negative (Negative)
[2023-02-18 15:04] LABS: Dilute Russell Viper Venom 40.2 secs (25.2-42.2); LA Cascade Summary (See Note); Silica Clotting Time 44.6 secs (30.2-48.4)
[2023-02-19 15:13] LABS: dsDNA Ab, IgG <12.3 IU/mL (<30.0)
[2023-02-19 15:59] LABS: RNP Ab, IgG 2.7 Units (<20.0); SS-A Antibody 0.8 Units (<20.0); SS-B (La) Ab, IgG 2.4 Units (<20.0); Sm (Smith) Ab, IgG 1.6 Units (<20.0)
[2023-02-20 00:29] LABS: Anaplasma phagocytophilum Negative (Negative); B. miyamotoi PCR Negative (Negative); Babesia divergens/MO-1 Negative (Negative); Babesia duncani Negative (Negative); Babesia microti Negative (Negative); Ehrlichia chaffeensis Negative (Negative); Ehrlichia ewingii/canis Negative (Negative); Ehrlichia muris eauclairensis Negative (Negative)
== END 2023-02-17 13:56 | disposition home or self-care (01) | DRG 809 ==
LOC: ER 17:25 → MS 18:04
PROVIDERS: Nurse Practitioner Acute Care; Nurse Practitioner Family; Admitting Provider Internal Medicine; Emergency Provider Emergency Medicine; PCP Nurse Practitioner Family; Visit Provider Internal Medicine
DX: D61.818 Other pancytopenia (principal); N17.9 Acute kidney failure, unspecified; D69.2 Other nonthrombocytopenic purpura; F10.20 Alcohol dependence, uncomplicated; I10 Essential (primary) hypertension; M51.36 Other intervertebral disc degeneration, lumbar region; E66.9 Obesity, unspecified; Z68.33 Body mass index [BMI] 33.0-33.9, adult; E78.5 Hyperlipidemia, unspecified; M54.50 Low back pain, unspecified; I77.6 Arteritis, unspecified; F17.290 Nicotine dependence, other tobacco product, uncomplicated; D64.9 Anemia, unspecified
CPT/HCPCS: 36415; 80053; 82805; 84145; 85652; 86255; 86850; 86900; 86901; 86920; 87040; 87116; 87635; 87798; 93005; 93308; 96365; 96374; 99285; 71045; 80320; 81003; 81015; 82248; 83010; 83520; 83615; 83735; 83880; 84443; 84484; 85025; 85610; 85730; 86038; 86140; 86147; 86225; 86235; 86618; 87086; 93010; 99223; 99233; 99238; J1941; J3480; P9016

== ENCOUNTER 2023-02-26 09:15 | Outpatient (CLI) | payer BC, SELFPAY ==
[2023-02-26 09:25] LABS: HCT 35.1 % (40.0-50.0); HGB 11.4 g/dL (13.5-17.5); MCH 32.2 pg (27.0-33.0); MCHC 32.5 % (32.0-36.0); MCV 99 fL (80-95); MPV 10.3 fL (8.0-11.0); Platelet Count 128 10^3/uL (130-400); RBC 3.54 10^6/uL (4.36-5.78); RDW 13.9 % (11.8-14.1); RDW-SD 51.4 fL; WBC 2.17 10^3/uL (4.4-10.8)
[2023-02-26 09:34] LABS: ALT 76 U/L (16-63); AST 31 U/L (15-37); Albumin 3.2 g/dL (3.4-5.0); Alkaline Phosphatase 151 U/L (46-116); Anion Gap 6.1 mmol/L (3-11); BUN 17 mg/dL (7-18); Bilirubin, Total 1.4 mg/dL (0.2-1.0); CO2 27.9 mmol/L (21.0-32.0); CREATININE 1.2 mg/dL (0.70-1.30); Calcium 8.9 mg/dL (8.5-10.1); Chloride 109 mmol/L (98-107); Estimated GFR 71.42 (mL/min/1.73m2); Glucose 105 mg/dL (74-106); Sodium 143 mmol/L (136-145); Total Protein 6.9 g/dL (6.4-8.2)
== END 2023-02-26 09:16 | disposition home or self-care (01) ==
LOC: LBO 09:15
PROVIDERS: PCP Nurse Practitioner Family; Visit Provider Nurse Practitioner Family
DX: D61.818 Other pancytopenia (principal); N17.9 Acute kidney failure, unspecified
CPT/HCPCS: 36415; 80053; 85027

== ENCOUNTER 2023-03-08 03:34 | Outpatient (CLI) | payer BC, SELFPAY ==
[2023-03-08 12:10] LABS: Absolute Basophil Count 0.01 10^3/uL (0.0-0.2); Absolute Eosinophil Count 0.07 10^3/uL (0.0-0.7); Absolute Lymphocyte Count 0.77 10^3/uL (1.2-3.4); Absolute Monocyte Count 0.14 10^3/uL (0.1-0.8); Absolute Neutrophil Count 1.09 10^3/uL (1.2-6.7); Basophils % 0.5; Eosinophils % 3.4; HCT 40.9 % (40.0-50.0); HGB 13.1 g/dL (13.5-17.5); MCH 31.7 pg (27.0-33.0); MCV 99 fL (80-95); Monocytes % 6.7; Neutrophils % 52.4; Platelet Count 105 10^3/uL (130-400); RBC 4.13 10^6/uL (4.36-5.78); RDW 12.5 % (11.8-14.1); RDW-SD 46.1 fL; WBC 2.08 10^3/uL (4.4-10.8)
[2023-03-08 12:21] LABS: ALT 80 U/L (16-63); AST 40 U/L (15-37); Albumin 3.2 g/dL (3.4-5.0); Alkaline Phosphatase 164 U/L (46-116); Anion Gap 6.4 mmol/L (3-11); BUN 12 mg/dL (7-18); Bilirubin, Total 0.7 mg/dL (0.2-1.0); CO2 27.6 mmol/L (21.0-32.0); Calcium 8.6 mg/dL (8.5-10.1); Chloride 107 mmol/L (98-107); Estimated GFR 88.88 (mL/min/1.73m2); Glucose 146 mg/dL (74-106); Potassium 3.8 mmol/L (3.5-5.1); Sodium 141 mmol/L (136-145); Total Protein 6.8 g/dL (6.4-8.2)
== END 2023-03-08 03:35 | disposition home or self-care (01) ==
LOC: LOS 03:34
PROVIDERS: Family Medicine; PCP Nurse Practitioner Family; Visit Provider Nurse Practitioner Family
DX: Z00.00 Encounter for general adult medical examination without abnormal findings (principal); D61.818 Other pancytopenia; N17.9 Acute kidney failure, unspecified
CPT/HCPCS: 36415; 80053; 85025

== ENCOUNTER 2023-07-08 10:50 | Outpatient (CLI) | payer BC, SELFPAY ==
[2023-07-08 11:01] VITALS: BP 144/80; PULSE 74; RESP 20; TEMP 36.1; O2SAT 96
--- NOTE | 2023-07-08 11:36 | DI.RAD_ITS ---
Exam(s) XR PAIN CLINIC LUMBAR SP 2V EXAM: XR PAIN CLINIC LUMBAR SP 2V CLINICAL HISTORY: DX: Lumbar Spondylosis TECHNIQUE: 2D and realtime digital imaging was performed. Radiologist not present. CONTRAST MATERIAL: None. COMPARISON: No exams were available for comparison FINDINGS: Fluoroscopy was provided for pain management therapy. Please refer to procedure report or details. Radiation Exposure Index: Ka,r=22 mGy IMPRESSION: As above. RADIATION DOSE DELIVERED:
[2023-07-08 11:45] VITALS: BP 142/86; PULSE 78; RESP 14; O2SAT 97
[2023-07-08] MEDS: Omnipaque 240 MG/ML 50 ML BTL IJ (11:48)
[2023-07-08] MEDS: Bupivacaine 0.5% Pres-Free 10 ML VIAL IJ (11:49)
--- NOTE | 2023-07-08 12:36 | PDOC.PAIN ---
Date of service: 07/08/23 Time of Service: 12:37 Pain Managment Procedure Note Procedure Note Procedure Note: PROCEDURE NOTE Bilateral Lumbar Medial Branch Blocks Date of Service: July 08, 2023 Patient: Eleuterio Benitez Provider: Zenia Hugo DO, MPH Eleuteriomarco Benitez has been referred to the [facility] for lumbar medial branch blocks. Pre-operative diagnosis: Lumbar Spondylosis without Myelopathy Post-operative diagnosis: Same Pre-procedure pain: VAS= 8/10 COMMENTS: His pain is the same as it was when I evaluated him in the clinic. Sourav was interviewed and the medical records were reviewed. There were no medical, pharmacologic, radiographic or other structural contraindications to attempting fluoroscopically guided local anesthetic lumbar medial branch blocks. Risks and potential side effects were discussed. I also discussed the potential benefit(s) of the procedure with Eleuterio, and voiced concerns were addressed. After Eleuterio was completely informed about the procedure, the printed consent form was signed. A standard time-out procedure was performed. Eleuterio was placed in the prone position on the fluoroscopy table. Automated blood pressure cuff and pulse oximeter were applied. The skin entry points for approaching the anatomic target points of the segmental medial branches of bilateral L3,L4,L5 were identified with fluoroscopy and marked. The skin at the target site area was thoroughly prepared with Chlorhexadine. The skin was then draped. Next, a 25 gauge 3.5 spinal needle was placed under fluoroscopic guidance down on to the target point (the articular pillar) for each respective segmental medial branch. Position was confirmed in A/P and lateral views. Aspiration revealed no blood or clear fluid. Next, 0.25ml of omnipaque 240 was injected at each level. No contrast following a vascular or neural pattern was visualized under continuous fluoroscopy. Next, 0.25 ml of preservative-free 0.5% bupivicaine was injected at each level. There was no unusual discomfort expressed by Eleuterio. The needles were withdrawn without difficulty. (49 mls of Omnipaque was wasted) Eleuterio was observed and was without hemodynamic, neurologic, or allergic reactions.? Fluoroscopic images were digitally archived. Provacative testing using the Modified Boone's facet loading test- Left side Right Side Directly before the block VAS (0-10) = 8/10 VAS (0-10) = 8/10 Five minutes after the block VAS (0-10) = 7/10 VAS (0-10) = 7/10 Percentage relief obtained with this diagnostic block 20% 20% Any improved physical functioning directly after the blocks? Able to stand straighter Follow up plans and appointments were discussed with Eleuterio. Eleuterio was instructed to keep careful note of how the usual pain was modified by these injections. Specifically, to keep a pain diary for the next 4 hours using a numeric pain scale of 0-10 and report these results. Post procedure instruction was given as documented in the nursing documentation and having met discharge criteria, the patient was [facility] from the [facility]. Based on the medial branches blocked today, if they patient has adequate relief and we are able to proceed to radiofrequency ablation, the treatment should result in the denervation of the bilateral L4-L5 and L5-S1 facet joints. We would expect to denervate a total of 4 facets during the radiofrequency ablation. COMMENTS: No apparent complications. Post-procedure pain: VAS= 7/10 Eleuterio will call back with 0-4 hour post-procedure pain scores. He was instructed that he will need a responsible adult to stay with him for 4 hours after the RFA if we do in fact get to that procedure. I personally performed the entire procedure. ZENIA HUGO DO, MPH ABPM&R-subspecialty board certification in Pain Medicine [facility]
== END 2023-07-08 10:51 | disposition home or self-care (01) ==
LOC: PC 10:50
PROVIDERS: PCP Nurse Practitioner Family; Visit Provider Preventive Medicine Occupational Medicine
DX: M47.816 Spondylosis without myelopathy or radiculopathy, lumbar region (principal)
CPT/HCPCS: 64493; 64494; 72100; Q9967

== ENCOUNTER 2023-07-12 04:54 | Outpatient (CLI) | payer BC, SELFPAY ==
[2023-07-12 12:27] LABS: Abs Immature Grans 0.01 10^3/uL (0.0-0.06); Absolute Basophil Count 0.04 10^3/uL (0.0-0.2); Absolute Lymphocyte Count 1.02 10^3/uL (1.2-3.4); Absolute Monocyte Count 0.26 10^3/uL (0.1-0.8); Absolute Neutrophil Count 2.97 10^3/uL (1.2-6.7); Basophils % 0.9; Eosinophils % 4.4; HCT 45.7 % (40.0-50.0); HGB 15.4 g/dL (13.5-17.5); Immature Grans % 0.2; Lymphocytes % 22.7; MCH 31.9 pg (27.0-33.0); MCHC 33.7 % (32.0-36.0); MCV 95 fL (80-95); MPV 10.7 fL (8.0-11.0); Monocytes % 5.8; Platelet Count 113 10^3/uL (130-400); RBC 4.83 10^6/uL (4.36-5.78); RDW 13.4 % (11.8-14.1); RDW-SD 46.8 fL
[2023-07-12 12:46] LABS: CREATININE 1.2 mg/dL (0.70-1.30); Calculated LDL 111 mg/dL (<100); Cholesterol 181 mg/dL (<200); Estimated GFR 71.42 (mL/min/1.73m2); HDL Cholesterol 56 mg/dL (40-60); Potassium 3.6 mmol/L (3.5-5.1); Triglyceride 73 mg/dL (<150)
== END 2023-07-12 04:55 | disposition home or self-care (01) ==
LOC: LOS 04:54
PROVIDERS: PCP Nurse Practitioner Family; Visit Provider Nurse Practitioner Family
DX: I10 Essential (primary) hypertension (principal); D61.818 Other pancytopenia; E78.2 Mixed hyperlipidemia
CPT/HCPCS: 36415; 80061; 82565; 84132; 85025

== ENCOUNTER 2023-07-16 05:06 | Outpatient (CLI) | payer BC, SELFPAY ==
[2023-07-16 13:04] LABS: Vitamin B12 519 pg/mL (193-986)
[2023-07-16 13:05] LABS: Folate > 20.0 ng/mL (8.6-20.0)
== END 2023-07-16 05:07 | disposition home or self-care (01) ==
LOC: LOS 05:07
PROVIDERS: PCP Nurse Practitioner Family; Visit Provider Internal Medicine Hematology
DX: D69.6 Thrombocytopenia, unspecified (principal); E53.8 Deficiency of other specified B group vitamins; F10.10 Alcohol abuse, uncomplicated
CPT/HCPCS: 36415; 82607; 82746

== ENCOUNTER 2024-01-19 14:19 | Outpatient (CLI) | payer BC, SELFPAY ==
[2024-01-19 14:34] VITALS: BP 155/96; PULSE 76; RESP 20; TEMP 36.6; O2SAT 97
--- NOTE | 2024-01-19 14:50 | PDOC.PAIN ---
Date of service: 01/19/24 Time of Service: 14:50 Pain Managment Procedure Note Procedure Note Procedure Note: PROCEDURE NOTE LUMBAR EPIDURAL STEROID INJECTION Date of Service: January 19, 2024 Patient:Eleuterio Santana? Provider: Kishore Hugo DO, MPH Eleuterio Benitez has been referred to the [facility] for a lumbar epidural steroid injection. Pre-operative diagnosis: Lumbosacral Radiculopathy Post-operative diagnosis: Same Pre-Procedure Pain: VAS= 6-7 /10 Comments: I previously evaluated him in the clinic. His symptoms have no changed since then. Eleuterio was interviewed and the medical record was reviewed.? There were no medical, pharmacologic, radiographic or other structural contraindications to attempting fluoroscopically guided Lumbar epidural steroid injection.? Risks, potential side effects, indications, and potential benefits of the procedure were reviewed with Eleuterio.? Questions and concerns were addressed.? After it was clear that Eleuterio was fully informed about the procedure, the printed consent form was signed by the patient and myself.? Eleuterio was placed in the prone position on the fluoroscopy table and automated blood pressure cuff and pulse oximeter applied. The skin entry point for entering/approaching the epidural space for the lumbar epidural steroid injection was marked. Following thorough chlorhexadine preparation of the skin and draping and 1% lidocaine infiltration of the skin entry point and subcutaneous tissues, an 18 gauge Touhy needle was placed and advanced under fluoroscopic guidance and with loss of resistance technique into the L5-S1 epidural space. Needle tip placement and depth were aided and confirmed by fluoroscopy. There was no paresthesia or return of blood or CSF through the needle. 1 mls of Omnipaque 240 was injected with clear epidural spread confirmed with fluoroscopy. 80 mg of Depo-Medrol was? injected. This was followed by 1 ml of preservative-free normal saline to flush the steroid out of the needle. There was no unusual discomfort expressed by Eleuterio. The needle was withdrawn without difficulty. (49 mls of Omnipaque was wasted) Eleuterio was observed and was without hemodynamic, neurologic, or allergic reactions.? Fluoroscopic images were digitally archived. Eleuterio's vital signs were stable throughout the procedure and were as recorded in nursing records. Follow up plans and appointments were discussed with Eleuterio. Post procedure instruction was given as documented in nursing records and having met discharge criteria Eleuterio was discharged from the [facility]. COMMENTS: No apparent complications. Post-procedure pain: VAS= 3/10. Eleuterio to contact [facility] as needed. If at least 50% improvement in pain and/or function for at least 3 months is achieved, this procedure can be repeated. I personally performed this entire procedure. KISHORE HUGO DO, MPH ABPMR-subspecialty board certification in Pain Medicine [facility]
--- NOTE | 2024-01-19 15:05 | DI.RAD_ITS ---
Exam(s) XR PAIN CLINIC LUMBAR SP 2V EXAM: XR PAIN CLINIC LUMBAR SP 2V CLINICAL HISTORY: Dx: Lumbar Radiculopathy. TECHNIQUE: Fluoroscopy was provided for the referring physician for guidance with performing pain cl inic injection procedure. COMPARISON: No exams were available for comparison FINDINGS: Please see procedure note for details. Fluoro time: 15.8 seconds RADIATION DOSE DELIVERED: Ka,r=7.61 mGy
[2024-01-19 15:09] VITALS: BP 152/104; PULSE 70; RESP 15; O2SAT 97
[2024-01-19] MEDS: Omnipaque 240 MG/ML 50 ML BTL IJ (15:10)
[2024-01-19] MEDS: Epidural Tray 1 EACH MC (15:10)
[2024-01-19] MEDS: methylPREDNISolone ACETATE 80 MG/ML VIAL IJ (15:11)
== END 2024-01-19 14:20 | disposition home or self-care (01) ==
LOC: PC 14:20
PROVIDERS: PCP Nurse Practitioner Family; Visit Provider Preventive Medicine Occupational Medicine
DX: M54.17 Radiculopathy, lumbosacral region (principal)
CPT/HCPCS: 62323; 72100; J1010; Q9967

== ENCOUNTER 2024-01-25 05:01 | Outpatient (CLI) | payer BC, SELFPAY ==
[2024-01-25 12:25] LABS: Abs Immature Grans 0.01 10^3/uL (0.0-0.06); Absolute Basophil Count 0.03 10^3/uL (0.0-0.2); Absolute Eosinophil Count 0.08 10^3/uL (0.0-0.7); Absolute Lymphocyte Count 1.17 10^3/uL (1.2-3.4); Absolute Monocyte Count 0.33 10^3/uL (0.1-0.8); Absolute Neutrophil Count 2.53 10^3/uL (1.2-6.7); Basophils % 0.7; Eosinophils % 1.9; HCT 48.8 % (40.0-50.0); HGB 16.5 g/dL (13.5-17.5); Immature Grans % 0.2; Lymphocytes % 28.2; MCH 32.8 pg (27.0-33.0); MCHC 33.8 % (32.0-36.0); MCV 97 fL (80-95); MPV 10.5 fL (8.0-11.0); Platelet Count 113 10^3/uL (130-400); RBC 5.03 10^6/uL (4.36-5.78); RDW 12.8 % (11.8-14.1); RDW-SD 45.7 fL; WBC 4.15 10^3/uL (4.4-10.8)
[2024-01-25 13:02] LABS: Vitamin B12 521 pg/mL (193-986)
[2024-01-25 13:04] LABS: Folate > 20.0 ng/mL (8.6-20.0)
== END 2024-01-25 05:02 | disposition home or self-care (01) ==
PROVIDERS: PCP Nurse Practitioner Family; Visit Provider Internal Medicine Hematology
DX: D69.6 Thrombocytopenia, unspecified (principal); E53.8 Deficiency of other specified B group vitamins; F10.10 Alcohol abuse, uncomplicated; E63.8 Other specified nutritional deficiencies
CPT/HCPCS: 36415; 82607; 82746; 85025

== ENCOUNTER 2025-02-13 14:17 | Observation (INO) | payer BC, SELFPAY ==
[2025-02-13] VITALS (45 sets, daily range): BP systolic 95–150; BP diastolic 46–79; PULSE 66–103; RESP 16–18; TEMP 36.8–37.1; O2SAT 96–100; BMI 31.8
--- NOTE | 2025-02-13 14:36 | W.ED.GENAD ---
Discharge Plan Discharge Details Chief Complaint: Cellulitis Clinical Impression: Abscess of gluteal region, Acute lactic acidosis Primary Care Provider: Tariq Saini ED Provider: Frank Brennan [place] Meds and New Rx's Prescriptions: No Action ibuprofen [IBU] 800 mg tablet 800 mg PO TID PRN (Reason: pain) Qty: 90 1RF vitamin B complex Tablet 1 tab PO DAILY Qty: 90 3RF folic acid 1 mg tablet 1 mg PO DAILY Qty: 90 3RF losartan 100 mg tablet 100 mg PO DAILY Qty: 90 3RF spironolactone 25 mg tablet 25 mg PO DAILY Qty: 90 3RF HPI General Date/Time Provider Initiated Documentation: 02/13/25 14:34. HPI Narrative: MDM This is an uncomfortable appearing mildly hypertensive 59-year-old normothermic and nontachycardic male with a large right-sided buttocks abscess concerning for deeper involvement for which patient will undergo CT scan of his pelvis with IV contrast. No pain out of proportion to suggest necrotizing soft tissue infection. Given hypotension will plan on treating for sepsis with piperacillin/tazobactam following blood cultures lactate and 1 L of IV fluid. Will keep patient n.p.o. and start maintenance fluids. No history of Crohn's disease to suggest increased risk for fistulization. Patient has been taking multiple doses of 800 mg ibuprofen tablets so we will provide IV fluids prior to scan. Will treat pain with acetaminophen and morphine. Soft nontender abdomen so I am not suspicious for intra-abdominal infection so we will defer CT scan of abdomen. He has only had liquids since midnight. 5:12 PM Labs notable for no anemia no thrombocytopenia nor leukocytosis. Patient does have a left shift. He has a lactic acidosis of 3.2 mmol/L. He does have a mild DAINA. His blood pressures have been persistently soft. I signed patient out to Dr. Payne pending CT scan, repeat lactate, and anticipated surgical consults. HPI Patient is a 59-year-old smoker with elevated BMI arrived to the emergency department via private vehicle for evaluation of an area on his right buttock. He reports the onset of a lesion on his right buttock last week, which has progressively enlarged to the point of causing significant discomfort. This is his first experience with such a condition. He does not have any history of Crohn's disease nor ulcerative colitis. He is not an intravenous drug user but admits to daily alcohol consumption and tobacco use. He does not experience tremors in the absence of alcohol. He is not diabetic and has not had any fevers. His appetite remains normal, although he notes a recent decrease in food intake. His last bowel movement was 2 days ago. He recalls a previous episode of a minor boil. Exam General: Well-appearing in no acute distress speaking in complete sentences. Head: Normocephalic, atraumatic. Eye: Extraocular eye movements intact. No conjunctival injection. No scleral icterus. Ear, nose, mouth, throat: Grossly normal inspection. Normal voice, handling secretions normally. Neck: Trachea midline. Cardiovascular: Well-perfused distal extremities. Respiratory: Nonlabored respiration. Gastrointestinal: Nondistended abdomen. Soft. Nontender. No rebound. No guarding. : On external inspection of the patient's right buttocks inferior to his anus but at the anal verge there is a large indurated tender fluctuant approximately 7 x 3 cm area. Musculoskeletal: No edema. Moving all 4 extremities spontaneously. Skin: Normal for age and race, grossly normal temperature and turgor. No acute rash. Neurologic: Alert and appropriate, no apparent acute deficits. Psychiatric: Mood and manner are appropriate. Grooming and personal hygiene are appropriate. Related Data Home Medications ?Medication ?Instructions ?Recorded ?Confirmed folic acid 1 mg tablet 1 mg PO DAILY #90 tabs 07/03/24 02/13/25 ibuprofen 800 mg tablet (IBU) 800 mg PO TID PRN pain #90 tabs 07/03/24 02/13/25 vitamin B complex 1 tab PO DAILY #90 tabs 07/03/24 02/13/25 losartan 100 mg tablet 100 mg PO DAILY #90 tabs 01/11/25 02/13/25 spironolactone 25 mg tablet 25 mg PO DAILY #90 tabs 01/11/25 02/13/25 Previous Rx's ?Medication ?Instructions ?Recorded folic acid 1 mg tablet 1 mg PO DAILY #90 tabs 07/03/24 ibuprofen 800 mg tablet (IBU) 800 mg PO TID PRN pain #90 tabs 07/03/24 vitamin B complex 1 tab PO DAILY #90 tabs 07/03/24 losartan 100 mg tablet 100 mg PO DAILY #90 tabs 01/11/25 spironolactone 25 mg tablet 25 mg PO DAILY #90 tabs 01/11/25 Allergies Allergy/AdvReac Type Severity Reaction Status Date / Time No Known Allergies Allergy Verified 02/13/25 14:32 General Stated Complaint: Cellulitis MARQUISE: 3 Course Vital Signs Vital signs: Vital Signs Temperature 37.1 C 02/13/25 14:29 Pulse 90 02/13/25 14:29 Respiratory Rate 18 02/13/25 14:29 Blood Pressure 99/68 L 02/13/25 14:29 Pulse Oximetry 97 02/13/25 14:29 Temperature 37.1 C 02/13/25 14:29 Pulse 90 02/13/25 14:29 Respiratory Rate 18 02/13/25 14:29 Blood Pressure 99/68 L 02/13/25 14:29 Pulse Oximetry 97 02/13/25 14:29 Pain Level 8 02/13/25 14:29 Medical Decision Making Quality:SDOH Health Related Social Needs: No Data to Display PFSH All Active Problems (Updated 02/13/25 @ 17:15 by Frank Brennan MD) Acute lactic acidosis (Acute) Abscess of gluteal region (Acute) Folate deficiency (Acute) Lumbar disc disorder (Acute) Lumbosacral spondylosis without myelopathy (Acute) Hypertension (Chronic) Vasculitis (Acute) Alcoholism (Chronic) Since age 12, 2-12 beers / day. h/o treatment in 1999. Sleep disorder (Acute 05/07/17) Hyperlipemia, mixed (Acute) Obesity (BMI 30.0-34.9) (Acute) DDD (degenerative disc disease), lumbar (Chronic) h/o 2 vertebral fractures after a fall Pancytopenia (Acute) Purpura (Acute) Medical History DAINA (acute kidney injury) Surgical History Dupuytrens contracture contracture of the right fifth finger. He has moderate ones of the right fourth and left fourth and fifth. surgery [place] 06/20 Family History Father Heart disease Neoplasm LUNG/BRAIN Grandfather Heart disease Grandmother Alcohol use disorder Grandmother Asthma FAMILY HISTORY Diabetes Depression Myocardial infarction Social History (Updated 07/08/23 @ 10:17 by Ras Cevallos) Smoking/Tobacco Use Status: Current every day Tobacco Type: smokeless tobacco Tobacco: How many years used: 42 Smokeless tobacco user: snuff Second Hand Exposure: Yes Smoking risk assessment performed?: Yes Alcohol Intake: current Alcohol Intake frequency: a few times a week Alcohol type: beer Drug use: Occasionally Substance use type: marijuana Household members: friend(s) Housing: house Number of Children: 1 number of grandchildren: 1 Communication Needs: Hard of Hearing Do you need help understanding health information?: Rarely current occupation: Disabled, previously worked in manufacturing Pets and animals: Yes Pets and animals: cat(s) Sexually active: Yes Do you think of yourself as: straight/heterosexual Current gender identity: male What is your relationship status?: How often do you talk on the phone with friends or family?: never Panel score (0-1 are the most socially isolated patients): 0 Do you feel safe at home: Yes Do you feel safe in your relationship?: Yes
--- NOTE | 2025-02-13 14:45 | DI.CT_ITS ---
Exam(s) CT PELVIC W EXAM: CT PELVIC W CLINICAL HISTORY: right buttocks abscess. TECHNIQUE: Imaging Protocol: Axial computed tomography images with coronal and sagittal reformatted images were created and reviewed CONTRAST MATERIAL: Intravenous: Omnipaque 100cc Oral: None COMPARISON: No exams were available for comparison FINDINGS: PELVIS: ANTERIOR ABDOMINAL WALL/GI:No evidence of bowel obstruction. No evidence of appendicitis.No evidence of sigmoid diverticulitis. There is a predominantly right of midline abscess in the low perianal region which measures 8 cm AP b y 3.5 cm wide by 7 cm craniocaudal. This is in the medial gluteal fat buttock tissues. This crosses the midline anteriorly with a small left of center component also noted. There are 2 tiny associate d gas bubbles (series 5/image is 92 and 93).. LYMPH NODES: There is no intrapelvic nor inguinal adenopathy. REPRODUCTIVE: Prostate not enlarged. Seminal vesicles appear unremarkable. URINARY BLADDER: No calculi nor obvious masses evident OSSEOUS: No evidence of pelvic nor hip fractures. No osseous lesions. No evidence of osteomyelitis. IMPRESSION: 1. Prominent perianal medial gluteal abscess predominately right-sided measuring approximately 8 cm A P x 3.5 cm wide by 7 cm craniocaudal and also extending with small component of the left of center. 2. Surgical consultation recommended. Findings called by myself to ER provider 02/13/2025 at 5:38 p.m. RADIATION DOSE DELIVERED: 431.68mGy.cm Total DLP DATA REPOSITORY: All CT scans at this facility are submitted to the National Radiology Data Registry (NRDR) Dose Index Registry (DIR) with the [employer] (A[employer]). RADIATION OPTIMIZATION: All CT scans at this facility use at least one of these dose optimization te chniques: automated exposure control; mA and/or kV adjustment per patient size (includes targeted exa ms where dose is matched to clinical indication); or iterative reconstruction.
[2025-02-13 15:13] LABS: Abs Immature Grans 0.03 10^3/uL (0.0-0.06); Absolute Basophil Count 0.03 10^3/uL (0.0-0.2); Absolute Eosinophil Count 0.04 10^3/uL (0.0-0.7); Absolute Lymphocyte Count 0.57 10^3/uL (1.2-3.4); Absolute Monocyte Count 0.61 10^3/uL (0.1-0.8); Absolute Neutrophil Count 7.51 10^3/uL (1.2-6.7); Basophils % 0.3 %; Eosinophils % 0.5 %; HCT 38.6 % (40.0-50.0); HGB 13.7 g/dL (13.5-17.5); Immature Grans % 0.3 %; Lactate 3.2 mmol/L (<or=2.0); Lymphocytes % 6.5 %; MCH 32.5 pg (27.0-33.0); MCHC 35.5 % (32.0-36.0); MCV 92 fL (80-95); MPV 10.3 fL (8.0-11.0); Monocytes % 6.9 %; Neutrophils % 85.5 %; Platelet Count 157 10^3/uL (130-400); RBC 4.22 10^6/uL (4.36-5.78); RDW 11.9 % (11.8-14.1); RDW-SD 39.9 fL; WBC 8.79 10^3/uL (4.4-10.8)
[2025-02-13] MEDS: Normal Saline 1,000 ML 125 ML IV (15:15)
[2025-02-13] MEDS: Normal Saline 1,000 ML 1000 ML IV (15:16)
[2025-02-13] MEDS: PIPERACILLIN/TAZO 3.375 GM in Normal Saline 50 ML IVPB (15:16)
[2025-02-13] MEDS: MORPHine 4 MG/ML SYR IVP ×2 (15:16→19:50)
[2025-02-13] MEDS: ACETAMINOPHEN 1,000 MG/100 ML BTL 400 MG IVPB (15:16)
[2025-02-13 15:28] LABS: Anion Gap 9.1 mmol/L (3-11); BUN 16 mg/dL (7-18); CO2 25.9 mmol/L (21.0-32.0); CREATININE 1.7 mg/dL (0.70-1.30); Calcium 8.9 mg/dL (8.5-10.1); Chloride 99 mmol/L (98-107); Estimated GFR 46.44 (mL/min/1.73m2); Glucose 110 mg/dL (74-106); Potassium 3.5 mmol/L (3.5-5.1); Sodium 134 mmol/L (136-145)
[2025-02-13] MEDS: Omnipaque 350 MG/ML 100 ML BTL IJ (17:06)
[2025-02-13] MEDS: Normal Saline - Diluent 50 ML VIAL IJ (17:07)
[2025-02-13] MEDS: VANCOMYCIN/WATER (PEG) 2 GM/400 ML BAG IVPB (17:36)
--- NOTE | 2025-02-13 18:06 | W.EDPROG ---
Date of service: 02/13/25 Time of Service: 17:00 Medical Decision Making This is a 59-year-old male patient with a past medical history significant for hypertension, hyperlipidemia, and pancytopenia who is presenting for evaluation of an abscess to the right gluteal region. At the time that I took over his care, this patient had laboratory studies that were notable for an elevated lactate to 3.2, and was getting a IV fluid bolus. His creatinine was 1.7, otherwise labs reassuring. He was awaiting a CT of the pelvis to evaluate this abscess, and had received Zosyn and was given vancomycin shortly after. CT scan reveals a large perianal abscess that does cross the midline, and for this reason I reached out to general surgery who plan to admit this patient and take him to the operating room for incision and drainage. I provided the patient with a dose of morphine for pain management, and he otherwise remained hemodynamically appropriate throughout his time under my care. Transferred to the general surgery service without incident. Kathy Payne MD Medical Records Medical records reviewed: Yes I reviewed the patient's medical records. Lab Data Lab results reviewed: Yes I reviewed the patient's lab results. Quality:[facility] Related Social Needs: No Data to Display Discharge Plan Disposition Patient Disposition: Admit to [facility] Condition: Stable Discharge Details Chief Complaint: Cellulitis Clinical Impression: Abscess of gluteal region, Acute lactic acidosis Primary Care Provider: Tariq Saini ED Provider: Kathy Payne Home Meds and New Rx's Prescriptions: No Action ibuprofen [IBU] 800 mg tablet 800 mg PO TID PRN (Reason: pain) Qty: 90 1RF vitamin B complex Tablet 1 tab PO DAILY Qty: 90 3RF folic acid 1 mg tablet 1 mg PO DAILY Qty: 90 3RF losartan 100 mg tablet 100 mg PO DAILY Qty: 90 3RF spironolactone 25 mg tablet 25 mg PO DAILY Qty: 90 3RF
--- NOTE | 2025-02-13 20:26 | ANES.PREOP_ITS ---
General Info Date of Service Date Performed: 02/13/25 Height: 6 ft Weight: 106.65 kg Body Mass Index (BMI): 31.8 Surgical Procedure: Operation Date: 02/13/25 21:40 Proposed Procedure Side Surgeon p Excision-Yeimi Rectal Abscess Mikel Macario MD Meds Allergies and Home Medications Allergies Allergy/AdvReac Type Severity Reaction Status Date / Time No Known Allergies Allergy Verified 02/13/25 14:32 Home Medication ?Medication ?Instructions ?Recorded folic acid 1 mg tablet 1 mg PO DAILY #90 tabs 07/03/24 ibuprofen 800 mg tablet (IBU) 800 mg PO TID PRN pain #90 tabs 07/03/24 vitamin B complex 1 tab PO DAILY #90 tabs 07/03/24 losartan 100 mg tablet 100 mg PO DAILY #90 tabs 01/11/25 spironolactone 25 mg tablet 25 mg PO DAILY #90 tabs 01/11/25 Current Visit Medications: Current Medications Generic Name Dose Route Start Last Admin Trade Name Freq PRN Reason Stop Dose Admin Hydromorphone HCl 1 mg 02/13/25 20:12 Hydromorphone 2 Mg/Ml Syr IVP Q2H PRN PRN Sodium Chloride 1,000 mls @ 125 mls/hr 02/13/25 15:00 Saline 1000ml Bag IV 02/14/25 00:59 INFUSION MADY Ringer's Solution 1,000 mls @ 75 mls/hr 02/13/25 20:15 IV INFUSION MADY IV Miscellaneous Supplies 1 each 02/13/25 20:15 Iv Access IV DIRECTED MADY Iohexol 100 ml 02/13/25 17:15 02/13/25 17:06 Omnipaque 350 Mg/Ml 100 Ml Btl IJ 03/15/25 23:59 100 ml DIRECTED MADY Administration Sodium Chloride 50 ml 02/13/25 17:15 02/13/25 17:07 Normal Saline - Diluent 50 Ml Vial IJ 50 ml .FOR DI USE MADY Administration Sodium Chloride 0 ml 02/13/25 20:12 Normal Saline Flush 10 Ml Syr IVP PRN PRN Sodium Chloride 0 ml 02/14/25 08:30 Normal Saline Flush 10 Ml Syr IVP BID MADY Sodium Chloride 0 ml 02/13/25 20:12 Normal Saline 10 Ml Vial IJ DIRECTED PRN PFSH Active Problems Active Problems: Problem Status Onset Code Acute lactic acidosis Acute E87.21 Abscess of gluteal region Acute L02.31 Folate deficiency Acute E53.8 Lumbar disc disorder Acute M51.9 Lumbosacral spondylosis without myelopathy Acute M47.817 Hypertension Chronic I10 Vasculitis Acute I77.6 Alcoholism Chronic F10.20 Sleep disorder Acute 05/07/17 G47.9 Hyperlipemia, mixed Acute E78.2 Obesity (BMI 30.0-34.9) Acute E66.9 DDD (degenerative disc disease), lumbar Chronic M51.36 Pancytopenia Acute D61.818 Purpura Acute D69.2 Medical History Medical History DAINA (acute kidney injury) Surgical History Surgical History Dupuytrens contracture contracture of the right fifth finger. He has moderate ones of the right fourth and left fourth and fifth. surgery [place] 06/20 Tobacco Smoking/Tobacco Use Status: Current every day Tobacco Type: smokeless tobacco Smokeless tobacco user: snuff Passive smoking exposure: Yes Second hand exposure: Yes Alcohol Alcohol Intake: current Alcohol intake frequency: a few times a week Alcohol type: beer Substance Use Substance use: Occasionally Substance use type: marijuana Vital Signs and Lab Results Vital Signs Most Recent Vital Signs in EMR: Most Recent Vital Signs Temp Pulse Resp BP Pulse Ox 37.1 C 70 18 117/66 98 02/13/25 15:32 02/13/25 18:50 02/13/25 15:32 02/13/25 17:01 02/13/25 18:50 Lab Results 02/13/25 14:59 02/13/25 14:59 Blood Type / Crossmatch: 2 No Data to Display Complete Blood Count: 2 White Blood Count 8.79 10^3/uL (4.4-10.8) 02/13/25 14:59 Red Blood Count 4.22 10^6/uL (4.36-5.78) L 02/13/25 14:59 Hemoglobin 13.7 g/dL (13.5-17.5) 02/13/25 14:59 Hematocrit 38.6 % (40.0-50.0) L 02/13/25 14:59 Platelet Count 157 10^3/uL (130-400) 02/13/25 14:59 Venous Blood Lactate 3.2 mmol/L (<or=2.0) H* 02/13/25 14:59 Complete Metabolic Panel: 2 Sodium 134 mmol/L (136-145) L 02/13/25 14:59 Potassium 3.5 mmol/L (3.5-5.1) 02/13/25 14:59 Chloride 99 mmol/L (98-107) 02/13/25 14:59 Carbon Dioxide 25.9 mmol/L (21.0-32.0) 02/13/25 14:59 BUN 16 mg/dL (7-18) 02/13/25 14:59 Creatinine 1.7 mg/dL (0.70-1.30) H 02/13/25 14:59 Est GFR (CKD-EPI 2020) 46.44 (mL/min/1.73m2) 02/13/25 14:59 Calcium 8.9 mg/dL (8.5-10.1) 02/13/25 14:59 Glucose 110 mg/dL (74-106) H 02/13/25 14:59 Liver Function Panel: 2 No Data to Display Coagulation Panel: 2 No Data to Display Cardiac Panel: 2 No Data to Display Arterial Blood Gas: 2 No Data to Display Venous Blood Gas: 2 No Data to Display Pancreas Panel: 2 No Data to Display Thyroid Panel: 2 No Data to Display Infectious Disease: 2 No Data to Display Blood Cultures: 2 No Data to Display Toxicology Panel: 2 No Data to Display Anesthesia Assessment and Plan Anesthesia History Personal History: No History of Anesthesia Complications Family History: No Family History of Anesthesia Complications Exercise Tolerance Exercise Tolerance: Metabolic Equivalents>4 Cardiac & Pulmonary Exam Cardiac Exam: Normal S1/S2 Heart Sounds Pulmonary Exam: Clear Bilateral Breath Sounds Implantable Cardiac Device Does patient have a Pacemaker or an ICD?: No Airway Exam Known Difficult Airway: Yes Mallampati Class: 4 Mouth Opening: Normal (> 3cm) Thyromental Distance: Less than 3 cm Facial Hair: Full Ramirez Neck Range of Motion: Full ROM Neck Circumference: Normal Teeth Condition: Normal Dentition and Generalized Poor Dentition ASA Classification ASA Score: ASA 2 Emergency Case?: Yes NPO Status NPO Status: NPO Clears >2 hours, Solids >8 hours Anesthesia Plan Resuscitation Status: Full Code Anesthesia Technique: General Anesthesia Airway Planned: Endotracheal Tube Monitors Used: Standard Monitors Preoperative Comments:: 59 yo male for perirectal abscess. lactate 3.2, lactate 1.7. Sig PMHx: HTN (losartan, spironolactone), lumbar spondylosis, tobacco (snuff), occ EtOH/cannabis. Approp NPO (hasn't eaten in 24 hrs), however is not hungry.
--- NOTE | 2025-02-13 20:50 | HPE_ITS ---
Date of service: 02/13/25 Time of Service: 20:50 Assessment and Plan Assessment and plan (1) Abscess of gluteal region: Status: Acute Assessment and plan: Eleuterio clearly has a perianal abscess. His lactic acidosis is also concerning for sepsis. He is already been started on broad-spectrum antibiotics, and I think prompt incision and drainage is the most reasonable course of action. We talked about the natural history of perianal abscesses, and potential sources as a differential diagnosis. At this point, I explained that incision and drainage is the first-line of therapy, and it also affords us the opportunity for a microbiology exam to help tailor antibiotic therapy. I explained the risks and benefits of the procedure, and I think Eleuterio has a good understanding of all that. He is able to provide informed consent, and we will make arrangements to proceed to the operating room soon as we can. History of Present Illness History of Present Illness Chief Complaint: Anal pain and constipation N arrative: Eleuterio is 59 years old. He comes to the emergency department after approximately 1 week of pain increasing on the right side of his anus along his buttock. Says he first noticed it when he was going to the bathroom. He felt like it was a small pimple. He noticed pain in the area, and then some swelling over the next few days. Over the past 48 hours or so, the skin has become tough. Also over the past day or so, he has noticed some associated constipation type symptoms that seem to be related to pain in the buttock. Vital signs and labs in the emergency department were generally reassuring, although he did have mild lactic acidosis. He underwent a CT scan of the pelvis that demonstrated a perianal abscess. Other past medical history includes hypertension. Review of Systems Constitutional Constitutional: Denies fatigue, Denies fever(s) and Denies poor appetite Eyes Eyes: Reports system reviewed and no additional complaints, except as documented ENT Ears, Nose, Mouth, and Throat: Reports system reviewed and no additional complaints, except as documented Cardiovascular Cardiovascular: Denies chest pain and Denies dyspnea Respiratory Respiratory: Denies chest congestion, Denies cough and Denies dyspnea Gastrointestinal Gastrointestinal: Reports constipation, Denies nausea and Denies vomiting Genitourinary Genitourinary: Reports system reviewed and no additional complaints, except as documented Musculoskeletal Musculoskeletal: Reports system reviewed and no additional complaints, except as documented Endocrine Endocrine: Denies fatigue Hematologic/Lymphatic Hematologic/Lymphatic: Denies easy bleeding and Denies easy bruising PFSH All Active Problems (Updated 02/13/25 @ 17:15 by Frank Brennan MD) Acute lactic acidosis (Acute) Abscess of gluteal region (Acute) Folate deficiency (Acute) Lumbar disc disorder (Acute) Lumbosacral spondylosis without myelopathy (Acute) Hypertension (Chronic) Vasculitis (Acute) Alcoholism (Chronic) Since age 12, 2-12 beers / day. h/o treatment in 1999. Sleep disorder (Acute 05/07/17) Hyperlipemia, mixed (Acute) Obesity (BMI 30.0-34.9) (Acute) DDD (degenerative disc disease), lumbar (Chronic) h/o 2 vertebral fractures after a fall Pancytopenia (Acute) Purpura (Acute) Medical History DAINA (acute kidney injury) Surgical History Dupuytrens contracture contracture of the right fifth finger. He has moderate ones of the right fourth and left fourth and fifth. surgery [place] 06/20 Family History Father Heart disease Neoplasm LUNG/BRAIN Grandfather Heart disease Grandmother Alcohol use disorder Grandmother Asthma FAMILY HISTORY Diabetes Depression Myocardial infarction Social History (Updated 07/08/23 @ 10:17 by Ras Cevallos) Smoking/Tobacco Use Status: Current every day Tobacco Type: smokeless tobacco Tobacco: How many years used: 42 Smokeless tobacco user: snuff Second Hand Exposure: Yes Smoking risk assessment performed?: Yes Alcohol Intake: current Alcohol Intake frequency: a few times a week Alcohol type: beer Drug use: Occasionally Substance use type: marijuana Household members: friend(s) Housing: house Number of Children: 1 number of grandchildren: 1 Communication Needs: Hard of Hearing Do you need help understanding health information?: Rarely current occupation: Disabled, previously worked in manufacturing Pets and animals: Yes Pets and animals: cat(s) Sexually active: Yes Do you think of yourself as: straight/heterosexual Current gender identity: male What is your relationship status?: How often do you talk on the phone with friends or family?: never Panel score (0-1 are the most socially isolated patients): 0 Do you feel safe at home: Yes Do you feel safe in your relationship?: Yes Meds Allergies and Home Medications Allergies Allergy/AdvReac Type Severity Reaction Status Date / Time No Known Allergies Allergy Verified 02/13/25 14:32 Home Medications ?Medication ?Instructions ?Recorded ?Confirmed ?Type folic acid 1 mg tablet 1 mg PO DAILY #90 tabs 07/03/24 02/13/25 Rx ibuprofen 800 mg tablet (IBU) 800 mg PO TID PRN pain #90 tabs 07/03/24 02/13/25 Rx vitamin B complex 1 tab PO DAILY #90 tabs 07/03/24 02/13/25 Rx losartan 100 mg tablet 100 mg PO DAILY #90 tabs 01/11/25 02/13/25 Rx spironolactone 25 mg tablet 25 mg PO DAILY #90 tabs 01/11/25 02/13/25 Rx Exam Const General: cooperative, healthy appearing and comfortable Orientation: alert, awake and oriented x3 HENMT Head: normal to inspection Eyes General: appearance normal, both eyes and all related structures Neck Neck: normal visual inspection, full ROM and no lymphadenopathy Resp Effort & Inspection: normal respiratory effort and able to speak in complete sentences Auscultation: clear to auscultation bilaterally Cardio Rate: regular rate Rhythm: regular rhythm Heart Sounds: S1 normal and S2 normal GI Inspection: normal to inspection and non-distended Palpation: soft Percussion: normal to percussion Auscultation: normal bowel sounds Other: Right-sided perianal erythema, tenderness and fluctuance Results Imaging CT scan - pelvis: report reviewed and image reviewed Labs 02/13/25 14:59 02/13/25 14:59 Labs: Laboratory Results - last 24 hr 02/13/25 14:59 WBC 8.79 RBC 4.22 L Hgb 13.7 Hct 38.6 L MCV 92 MCH 32.5 MCHC 35.5 RDW 11.9 Plt Count 157 MPV 10.3 Immature Gran % 0.3 Neutrophils % 85.5 Lymphocytes % 6.5 Monocytes % 6.9 Eosinophils % 0.5 Basophils % 0.3 Nucleated RBC % 0.0 Absolute Neutrophils 7.51 H Absolute Lymphocytes 0.57 L Absolute Monocytes 0.61 Absolute Eosinophils 0.04 Absolute Basophils 0.03 VBG Lactate 3.2 H* Sodium 134 L Potassium 3.5 Chloride 99 Carbon Dioxide 25.9 Anion Gap 9.1 BUN 16 Creatinine 1.7 H Est GFR (CKD-EPI 2020) 46.44 Glucose 110 H Calcium 8.9 Last Vital Signs Temp 98.8 F 02/13/25 15:32 Pulse 70 02/13/25 18:50 Resp 18 02/13/25 15:32 BP 117/66 02/13/25 17:01 Pulse Ox 98 02/13/25 18:50 Time Spent Time spent with Patient: 40-54 minutes Time was spent: preparing to see the patient(eg.review tests), referring, communicating with other health memory care program resident, indepentently interpreting results, counseling the patient and care coordination
[2025-02-13] MEDS: Lactated Ringers 1,000 ML 75 ML IV (22:10)
[2025-02-14] VITALS (13 sets, daily range): BP systolic 81–128; BP diastolic 43–75; PULSE 54–86; RESP 14–161; TEMP 35.5–37.1; O2SAT 96–100
--- NOTE | 2025-02-14 00:56 | W.PM.OP ---
Operative Note Operative Note PRE-OP DIAGNOSIS: Perianal abscess POST-OP DIAGNOSIS: other (Perirectal abscess) PROCEDURE: Incision and drainage of perirectal abscess SURGEON: Mikel Macario PROFESSOR OF ARCHITECTURE: Kathy Eaton ANESTHESIA TYPE: General LMA/ETT Refer to Anesthesia Record ESTIMATED BLOOD LOSS: 15 PATHOLOGY: other (Abscess for Gram stain and culture) COMPLICATIONS: None Patient was transported to: PACU Patient's condition: stable Indications: Eleuterio is a 59-year-old male with a tender fluctuant area on the right buttock adjacent to the anus CT scan demonstrated a large perianal abscess Findings: Slightly loculated necrotizing soft tissue infection of the right perirectal space and peritoneum Procedure Description: I met with Eleuterio in the preoperative area, and we reviewed the plan for incision and drainage of this abscess. Next, he was brought back to the operating room. He was assisted onto the OR table, general endotracheal anesthesia was induced. He was placed in lithotomy positioning. Great care was taken to make sure that he was padded and supported appropriately. The perineum was then prepped and draped. We performed a digital rectal exam. There is stool in the rectal vault. I do not appreciate any masses, or abnormalities within the palpable portion of the rectum. The anal column appears and feels normal. I do not see any fistulas or fissures. Next, I turned our attention to incision and drainage of the abscess. Over the area of greatest fluctuance on the right gluteus few centimeters away from the anus, we sharply incised the skin. There was immediate drainage of foul-smelling thick purulent fluid. Specimens were obtained for Gram stain and culture. The abscess cavity was palpated. There were some simple loculations that were easily debrided and manually divided. The cavity tracks superior parallel to the rectal wall approximately 7 cm, and slightly anterior into the perineum. Cavity was irrigated with 3 L of saline solution. It was hemostatic. It was packed with Kerlix gauze and dressed with an ABD. Eleuterio was then allowed to awaken from the anesthetic, extubated, and transferred to the recovery unit. Date of Procedure: 02/14/25
--- NOTE | 2025-02-14 01:16 | W.ANESPOSTOP ---
Postoperative Evaluation Date, Time and Location Date Performed: 02/14/25 Time Performed: 01:16 Patient Location: PACU Vital Signs Most Recent Imported Vital Signs: Most Recent Vital Signs Temp Pulse Resp BP Pulse Ox 37.1 C 80 16 104/75 100 02/14/25 01:15 02/14/25 01:15 02/14/25 01:15 02/14/25 01:15 02/14/25 01:15 Pain Score Most Recent Pain Score: Most Recent Pain Score Pain Level 0 02/14/25 01:15 Assessment Mental Status: Awake (Alert & Oriented to Patient Baseline) Airway and Respiratory Function: Patent airway with normal (patient baseline) respiratory exam Cardiovascular Function: Hemodynamically Stable Hydration Status: Adequately Hydrated Nausea & Vomiting: No Nausea or Vomiting Pain: Pain is tolerable per patient Peripheral Nerve Block: Patient did not receive a nerve block
[2025-02-14] MEDS: PIPERACILLIN/TAZO 3.375 GM in Normal Saline 50 ML IVPB ×2 (02:20→10:28)
[2025-02-14] MEDS: HYDROmorphone 2 MG/ML SYR 1 MG IVP (06:03)
[2025-02-14] MEDS: Normal Saline Flush 10 ML SYR (06:19)
[2025-02-14 06:20] LABS: HCT 32.6 % (40.0-50.0); HGB 11.4 g/dL (13.5-17.5); MCH 32.2 pg (27.0-33.0); MCV 92 fL (80-95); MPV 10.4 fL (8.0-11.0); Platelet Count 136 10^3/uL (130-400); RBC 3.54 10^6/uL (4.36-5.78); RDW 11.9 % (11.8-14.1); RDW-SD 40.5 fL; WBC 9.44 10^3/uL (4.4-10.8)
--- NOTE | 2025-02-14 07:28 | W.PC.ACHO ---
Registration Status: Primary Language: Preferred Language: ED Information & Data Chief Complaint Cellulitis 02/13/25 15:32 Chief Complaint Cellulitis 02/13/25 14:36 Triage Note noticed small pimple on 02/13/25 14:29 right buttock last week now is the size of fist. Redness , hard area painful to sit - took ibupro today 800mg prior to arrival Medical / Surgical History (Last Reviewed 01/19/24 @ 14:34 by Edie Dwyer RN) DAINA (acute kidney injury) (Last Reviewed 01/19/24 @ 14:34 by Edie Dwyer, TEA) Dupuytrens contracture Most Recent Vital Signs Temperature 35.6 C L 02/14/25 04:33 Temperature Source Temporal Artery Scan 02/14/25 04:33 Pulse 56 L 02/14/25 04:33 Pulse Rhythm Regular 02/13/25 21:40 Respiratory Rate 16 02/14/25 04:33 Respiratory Effort Normal, Non-Labored 02/13/25 21:40 Respiratory Depth Normal 02/13/25 21:40 Respiratory Pattern Normal 02/13/25 21:40 Blood Pressure 107/67 02/14/25 04:33 Blood Pressure Mean 80 02/14/25 04:33 Pulse Oximetry 97 02/14/25 04:33 Oxygen Delivery Method Room Air 02/14/25 04:33 Oxygen Flow Rate 0 02/14/25 04:33 Pain Level 8 02/14/25 06:03 Comment nurse notified 02/14/25 03:34 Allergies No Known Allergies Allergy (Verified 02/13/25 14:32) Active Medications Generic Name Dose Route Start Last Admin Trade Name Freq PRN Reason Stop Dose Admin Hydromorphone HCl 1 mg 02/13/25 20:12 02/14/25 06:03 Hydromorphone 2 Mg/Ml Syr IVP 1 mg Q2H PRN PRN Administration Piperacillin Sod/Tazobactam 50 mls @ 12.5 mls/hr 02/14/25 02:00 02/14/25 05:54 Sod 3.375 gm/ Sodium Chloride IVPB Infused Q8H MADY Infusion IV IV Catheter Type [Left Saline Lock Antecubital] IV Catheter Gauge [Left 18 Antecubital] Diet Orders Category Date Time Status DIET [Regular/Normal] [DIET] Nutrition 02/14/25 Breakfast Active Diagnostics 02/14/25 02/13/25 Range/Units 05:33 14:59 WBC 9.44 8.79 (4.4-10.8) 10^3/uL RBC 3.54 L 4.22 L (4.36-5.78) 10^6/uL Hgb 11.4 L D 13.7 (13.5-17.5) g/dL Hct 32.6 L 38.6 L (40.0-50.0) % MCV 92 92 (80-95) fL MCH 32.2 32.5 (27.0-33.0) pg MCHC 35.0 35.5 (32.0-36.0) % RDW 11.9 11.9 (11.8-14.1) % Plt Count 136 157 (130-400) 10^3/uL MPV 10.4 10.3 (8.0-11.0) fL Immature Gran % 0.3 % Neutrophils % 85.5 % Lymphocytes % 6.5 % Monocytes % 6.9 % Eosinophils % 0.5 % Basophils % 0.3 % Nucleated RBC % 0.0 (0.0-0.3) % Absolute Neutrophils 7.51 H (1.2-6.7) 10^3/uL Absolute Lymphocytes 0.57 L (1.2-3.4) 10^3/uL Absolute Monocytes 0.61 (0.1-0.8) 10^3/uL Absolute Eosinophils 0.04 (0.0-0.7) 10^3/uL Absolute Basophils 0.03 (0.0-0.2) 10^3/uL VBG Lactate 3.2 H* (<or=2.0) mmol/L Sodium 134 L (136-145) mmol/L Potassium 3.5 (3.5-5.1) mmol/L Chloride 99 (98-107) mmol/L Carbon Dioxide 25.9 (21.0-32.0) mmol/L Anion Gap 9.1 (3-11) mmol/L BUN 16 (7-18) mg/dL Creatinine 1.7 H (0.70-1.30) mg/dL Est GFR (CKD-EPI 2020) 46.44 (mL/min/1.73m2) Glucose 110 H (74-106) mg/dL Calcium 8.9 (8.5-10.1) mg/dL 02/13/25 15:20 Blood Culture - Pending Blood 02/14/25 00:38 Surgical Culture - Pending Perirectal Gram Stain - Final 02/14/25 00:38 Anaerobic Culture - Pending Perirectal 02/13/25 14:59 Blood Culture - Pending Blood Intake and Output - 24 Hour Total 02/13/25 14:17 thru 02/14/25 05:55 Intake Total 3990.0 Output Total 950 Balance 3040.0 Weight 106.9 kg Intake: IV 3190.0 Oral 800 Output: Urine 950 Other: Urine Color Light Judi Urine Appearance Clear Emesis Description None Falls Risk Assessment History of Falls Previous History 02/13/25 21:40 Contributing Factors No Factors 02/13/25 21:40 Ambulatory Aids Independent 02/13/25 21:40 Tubes/Lines W/no contributing factors 02/13/25 21:40 Gait Evaluation No gait disturbance 02/13/25 21:40 Cognition No cognitive impairment 02/13/25 21:40 Fall Total Score 02/13/25 21:40 Level of Risk Moderate Risk 02/13/25 21:40 Problems (Last Reviewed 01/19/24 @ 14:34 by Edie Dwyer, TEA) Acute lactic acidosis (Acute) Abscess of gluteal region (Acute) v v v v v v v v v Sending and/or Receiving Nurses: Please use comment section below to note any information pertinent to the patient hand-off not included above. Information / Comments: abdomen pain, radiating. Pleasant, hungry. Pt has been having s/s x1week, more so the last 2 days. getting mIVF now. got lainey chua, 1g APAP, last 4mg morphine 1942. A&Ox4, walky talky. 18g LAC. should be headed to OR at somepoint when there's time for I&D Report received from: Jose. Called @[phone]
[2025-02-14] MEDS: Vitamins B Comp w/C TAB 1 TAB PO (08:54)
[2025-02-14] MEDS: Folic Acid 1 MG TAB PO (08:54)
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
--- NOTE | 2025-02-14 10:57 | PGE_ITS ---
Date of Service Date of service: 02/14/25 Time of Service: 10:57 Assessment and Plan Assessment and plan (1) Abscess of gluteal region: Status: Acute Assessment and plan: 59-year-old man postop day 1 from perianal abscess drainage. I instructed him to remove the packing tomorrow morning in the shower at home. He should do sitz bath as 3?6 times a day or more as needed/desired. In general antibiotics are not indicated for this particular condition, however given his pancytopenia history without any obvious explanation or reason, it seems reasonable to do 5 days of antibiotics. Follow-up in 5-7 days Subjective Subjective Interval history since last seen: No overnight events since the operating room drainage. He reports he feels a lot better. He says this happened once before in the past. He is not diabetic but he does have a history of pancytopenia for reasons that he does not know. Exam Narrative Exam Narrative: Gen: Non-toxic, comfortable and interactive Neuro: Alert and oriented x3 Psych: Good mood and affect. Good insight and understanding into condition. Chest: Non-labored breathing, no wheezing, no visible shortness of breath. Heart: Regular Perianal exam: Packing in place, dry but stained, ABD pad stained but overall minimally so. Objective Last Vital Signs Temp 95.9 F L 02/14/25 07:45 Pulse 54 L 02/14/25 07:45 Resp 16 02/14/25 07:45 BP 124/70 02/14/25 08:02 Pulse Ox 98 02/14/25 07:45 Laboratory Results - last 24 hr 02/13/25 02/14/25 14:59 05:33 WBC 8.79 9.44 RBC 4.22 L 3.54 L Hgb 13.7 11.4 L D Hct 38.6 L 32.6 L MCV 92 92 MCH 32.5 32.2 MCHC 35.5 35.0 RDW 11.9 11.9 Plt Count 157 136 MPV 10.3 10.4 Immature Gran % 0.3 Neutrophils % 85.5 Lymphocytes % 6.5 Monocytes % 6.9 Eosinophils % 0.5 Basophils % 0.3 Nucleated RBC % 0.0 Absolute Neutrophils 7.51 H Absolute Lymphocytes 0.57 L Absolute Monocytes 0.61 Absolute Eosinophils 0.04 Absolute Basophils 0.03 VBG Lactate 3.2 H* Sodium 134 L Potassium 3.5 Chloride 99 Carbon Dioxide 25.9 Anion Gap 9.1 BUN 16 Creatinine 1.7 H Est GFR (CKD-EPI 2020) 46.44 Glucose 110 H Calcium 8.9 PAWSS Have you Been Recently Intoxicated or Drunk Within the Last 30 days?: Yes Have you Ever Experienced Previous Episodes of Alcohol Withdrawal?: No Have you ever Experienced Withdrawal Seizures?: No Have you ever Experienced Delirium Tremens(DT)s?: No Have you ever undergone Alcohol Rehabilitation Treatment (i.e, inpt ot outpatient treatment programs)?: No Have you ever Experienced Blackouts?: No Have you ever Combined Alcohol with other Downers within the last 90 days?: No Have you ever Combined Alcohol with any other Substance of Abuse during the last 90 days?: No Positive Blood Alcohol level on Presentation? [PCS.BAL]: Unable to Obtain Evidence of Increased Autonomic Activity (i.e. HR>120, tremor, sweating, agitation, nausea)?: No Result: 1 Time Spent with Patient Time Spent with Patient: 25-34 minutes Time was spent: preparing to see the patient(eg.review tests), obtaining and/or reviewing separately otained hiistory, ordering medications,tests, procedures, referring, communicating with other health caregiver assisted living, indepentently interpreting results, counseling the patient and care coordination
--- NOTE | 2025-02-14 12:41 | W.PM.DS.N ---
Date of service: 02/14/25 Time of Service: 12:41 DS: Diagnosis Discharge Diagnosis (1) Abscess of gluteal region: Status: Acute Asessment and Plan: Ready for discharge home Remove packing tomorrow Take oral antibiotics for 5 days Follow-up in 5 to 7 days Discharge Plan Disposition Patient Disposition: Home Condition: Stable Condition: Improving Discharge Details Reason For Visit: Perirectal Abscess Admit Date/Time: 02/13/25 20:12 Admit Provider: Mikel Macario Attending Provider: Mikel Macario Primary Care Provider: Tariq Saini Hospital Course Hospital Course: 59-year-old man had a perianal abscess that was drained in the operating room. He has a history of pancytopenia without an obvious diagnosis. He was kept overnight for observation and was doing well the next day and discharged home. He will take the packing out at home the morning of postop day 2 (36 hours) and will continue oral antibiotics for 5 days because of his pancytopenia diagnosis. Home Meds and New Rx's Prescriptions: No Action ibuprofen [IBU] 800 mg tablet 800 mg PO TID PRN (Reason: pain) Qty: 90 1RF vitamin B complex Tablet 1 tab PO DAILY Qty: 90 3RF folic acid 1 mg tablet 1 mg PO DAILY Qty: 90 3RF losartan 100 mg tablet 100 mg PO DAILY Qty: 90 3RF spironolactone 25 mg tablet 25 mg PO DAILY Qty: 90 3RF Discharge Instructions Additional Instructions: INSTRUCTIONS: Incision/packing - remove in the shower tomorrow morning. Soak in a sitz bath at least 3 times daily and as many as 6 or 7 times daily for 10-20 minutes at a time in hot water. Activity: As tolerated. Diet: Regular diet as tolerated. Medications: Resume any/all of your usual/regular home medications. Take the entire course of antibiotics. Follow-up: Call and schedule an appointment to be seen in the next 5-7 days in the surgery office. Pain control: Take Tylenol, 1000 mg, every 6 hours on a schedule for the next 3 days. Ibuprofen also works. . Activity:: Activity as Tolerated Equipment/Supplies:: No Equipment Needed Diet:: As Tolerated DS: Summary Time Spent with Patient providing and/or coordinating discharge services: Greater than 30 minutes Status at Discharge Functional status at discharge: independent ambulation Overall status at discharge: patient is progressing back to baseline Mental Status: mental status grossly normal Speech and Movement: speech and movement normal Mood: congruent mood Affect: normal affect Quality:SDOH Health Related Social Needs: No Data to Display Exam Psych Mental Status: mental status grossly normal Speech and Movement: speech and movement normal Mood: congruent mood Affect: normal affect DS: Data Vitals/I&O Vitals and I&O: Vital Signs Temperature 95.9 F L 02/14/25 07:45 Temperature Source Temporal Artery Scan 02/14/25 07:45 Pulse 64 02/14/25 11:36 Pulse Rhythm Regular 02/13/25 21:40 Respiratory Rate 16 02/14/25 07:45 Respiratory Effort Normal, Non-Labored 02/13/25 21:40 Respiratory Depth Normal 02/13/25 21:40 Respiratory Pattern Normal 02/13/25 21:40 Blood Pressure 100/70 02/14/25 11:36 Blood Pressure Mean 80 02/14/25 11:36 Pulse Oximetry 98 02/14/25 07:45 Oxygen Delivery Method Room Air 02/14/25 07:45 Oxygen Flow Rate 0 02/14/25 07:45 Pain Level 0 02/14/25 07:45 Comment BP rechecked. 02/14/25 08:02 Intake & Output 02/13/25 02/14/25 02/14/25 23:59 11:59 23:59 Intake Total 2555 / 2555 1435.0 / 1435.0 Output Total 250 / 250 1075 / 1075 Balance 2305 / 2305 360.0 / 360.0 Weight 235 lb 10.786 oz Intake: IV 2555 / 2555 635.0 / 635.0 Oral 800 / 800 Output: Urine 250 / 250 1075 / 1075 Other: Urine Color Light Judi Dark Judi Urine Appearance Clear Clear Emesis Description None Data Completed and Pending Labs on day of discharge: Labs from last 24 hours 02/14/25 05:33: WBC 9.44, RBC 3.54 L, Hgb 11.4 L D, Hct 32.6 L, MCV 92, MCH 32.2, MCHC 35.0, RDW 11.9, Plt Count 136, MPV 10.4 02/13/25 14:59: WBC 8.79, RBC 4.22 L, Hgb 13.7, Hct 38.6 L, MCV 92, MCH 32.5, MCHC 35.5, RDW 11.9, Plt Count 157, MPV 10.3, Immature Gran % 0.3, Neutrophils % 85.5, Lymphocytes % 6.5, Monocytes % 6.9, Eosinophils % 0.5, Basophils % 0.3, Nucleated RBC % 0.0, Absolute Neutrophils 7.51 H, Absolute Lymphocytes 0.57 L, Absolute Monocytes 0.61, Absolute Eosinophils 0.04, Absolute Basophils 0.03, VBG Lactate 3.2 H*, Sodium 134 L, Potassium 3.5, Chloride 99, Carbon Dioxide 25.9, Anion Gap 9.1, BUN 16, Creatinine 1.7 H, Est GFR (CKD-EPI 2020) 46.44, Glucose 110 H, Calcium 8.9 02/13/25 15:20 Blood Blood Culture - Pending 02/14/25 00:38 Perirectal Surgical Culture - Pending 02/14/25 00:38 Perirectal Anaerobic Culture - Pending 02/13/25 14:59 Blood Blood Culture - Pending Preliminary micro results at discharge 02/13/25 15:20 Blood Blood Culture - Pending 02/14/25 00:38 Perirectal Surgical Culture - Pending 02/14/25 00:38 Perirectal Anaerobic Culture - Pending 02/13/25 14:59 Blood Blood Culture - Pending [facility] All Active Problems (Updated 02/13/25 @ 17:15 by Frank Brennan MD) Acute lactic acidosis (Acute) Abscess of gluteal region (Acute) Folate deficiency (Acute) Lumbar disc disorder (Acute) Lumbosacral spondylosis without myelopathy (Acute) Hypertension (Chronic) Vasculitis (Acute) Alcoholism (Chronic) Since age 12, 2-12 beers / day. h/o treatment in 1999. Sleep disorder (Acute 05/07/17) Hyperlipemia, mixed (Acute) Obesity (BMI 30.0-34.9) (Acute) DDD (degenerative disc disease), lumbar (Chronic) h/o 2 vertebral fractures after a fall Pancytopenia (Acute) Purpura (Acute) Medical History DAINA (acute kidney injury) Surgical History Dupuytrens contracture contracture of the right fifth finger. He has moderate ones of the right fourth and left fourth and fifth. surgery Jacek 06/20 Family History Father Heart disease Neoplasm LUNG/BRAIN Grandfather Heart disease Grandmother Alcohol use disorder Grandmother Asthma FAMILY HISTORY Diabetes Depression Myocardial infarction Social History (Updated 07/08/23 @ 10:17 by Ras Cevallos) Smoking/Tobacco Use Status: Current every day Tobacco Type: smokeless tobacco Tobacco: How many years used: 42 Smokeless tobacco user: snuff Second Hand Exposure: Yes Smoking risk assessment performed?: Yes Alcohol Intake: current Alcohol Intake frequency: a few times a week Alcohol type: beer Drug use: Occasionally Substance use type: marijuana Household members: friend(s) Housing: house Number of Children: 1 number of grandchildren: 1 Communication Needs: Hard of Hearing Do you need help understanding health information?: Rarely current occupation: Disabled, previously worked in manufacturing Pets and animals: Yes Pets and animals: cat(s) Sexually active: Yes Do you think of yourself as: straight/heterosexual Current gender identity: male What is your relationship status?: How often do you talk on the phone with friends or family?: never Panel score (0-1 are the most socially isolated patients): 0 Do you feel safe at home: Yes Do you feel safe in your relationship?: Yes Time Spent with Patient Time Spent with Patient: <45 minutes Time was spent: preparing to see the patient(eg.review tests), obtaining and/or reviewing separately otained hiistory, ordering medications,tests, procedures, indepentently interpreting results, counseling the patient and care coordination
--- NOTE | 2025-02-14 13:41 | CHAPLAIN ---
Eleuterio was in bed when I visited. He said he's waiting to get news and information from the hospitalist. He lives alone in [place], but identified his son as a support. His son lives in [facility]. It looks like Eleuterio was discharged later in the day.
--- NOTE | 2025-02-14 16:37 | PDOC.CMDIS ---
Date of service: 02/14/25 Time of Service: 16:37 LACE Index Scoring Tool Questions: Length of Stay (in days): 1 Was the patient admitted via the E.D.?: Yes E.D. Visits: 1 Answers: Total Score: 5 Risk of Readmission: Low Risk Care Management Discharge Plan Reason for Hospitalization: Perirectal abcess Discharge Plan: Discharge home via private vehicle. Follow up with PCP and discharge plan of care as directed. No new services are ordered prior to discharge. Patient/Family Education Needs: Review discharge instructions, limitations, medications and plan to follow up after discharge. Discuss ask me three. [facility] Health Related Social Needs: No Data to Display
== END 2025-02-14 12:55 | disposition home or self-care (01) ==
LOC: ER 20:30 → MS 21:38
PROVIDERS: Emergency Medicine; Admitting Provider Surgery; Emergency Provider Emergency Medicine; PCP Nurse Practitioner Family; Responsible Provider Surgery; Visit Provider Surgery
PROC: (CPT 46040; principal; 2025-02-13 21:30)
DX: K61.1 Rectal abscess (principal); D61.818 Other pancytopenia; I10 Essential (primary) hypertension; E53.8 Deficiency of other specified B group vitamins; M47.817 Spondylosis without myelopathy or radiculopathy, lumbosacral region; E78.2 Mixed hyperlipidemia; F17.220 Nicotine dependence, chewing tobacco, uncomplicated; E87.21 Acute metabolic acidosis; E66.9 Obesity, unspecified; F10.21 Alcohol dependence, in remission
CPT/HCPCS: 46040; 00123; 36415; 80048; 85027; 87040; 87077; 96361; 96365; 96366; 96367; 96368; 96375; 96376; 99285; 72193; 83605; 85025; 87070; 87075; 87186; 87205; G0378; J0131; J1100; J1171; J2250; J2270; J2405; J2543; J2704; J3010; J3372; J3490

== ENCOUNTER 2025-05-25 13:41 | Emergency (ER) | payer BC, SELFPAY ==
[2025-05-25 13:42] VITALS: BP 111/79; PULSE 95; RESP 18; TEMP 36.9; O2SAT 96
--- NOTE | 2025-05-25 13:45 | DI.CT_ITS ---
Exam(s) CT PELVIC W EXAM: CT PELVIC W CLINICAL HISTORY: R. perirectal abscess. TECHNIQUE: Imaging Protocol: Axial computed tomography images with coronal and sagittal reformatted images were created and reviewed. CONTRAST MATERIAL: Intravenous: Omnipaque 350 Contrast volume:90 ml Contrast route:IV - Oral: no COMPARISON: CT CT PELVIC W from 02/13/2025 FINDINGS: Bladder: No gross wall thickening. No stones.No evidence of mass. Bowel: There is mild sigmoid diverticulosis. There is an area of wall thickening and narrowing in the mid sigmoid which show a shows some mild stranding in the surrounding fat which could indicate mild diverticulitis. A mass is not excluded although considered less likely since this area showed no inflammation or wall thickening on the previous exam. Peritoneal cavity: No ascites or focal collection. Reproductive: Prostate is slightly enlarged. Vasculature: No evidence of aortic or iliac artery aneurysm. Bones: No acute findings. Soft tissues: There is a small right perianal abscess measuring 3.7 1.8 x 3.3 cm. IMPRESSION: 3.7cm right perianal abscess. Focal area of wall thickening inflammation involving the mid sigmoid could indicate focal diverticulitis. RADIATION DOSE DELIVERED: Total DLP DATA REPOSITORY: All CT scans at this facility are submitted to the National Radiology Data Registry (NRDR) Dose Index Registry (DIR) with the [employer] (ACR). RADIATION OPTIMIZATION: All CT scans at this facility use at least one of these dose optimization techniques: automated exposure control; mA and/or kV adjustment per patient size (includes targeted exams where dose is matched to clinical indication); or iterative reconstruction.
[2025-05-25 13:47] VITALS: BP 111/79; PULSE 95; RESP 18; TEMP 36.9; O2SAT 96
--- NOTE | 2025-05-25 13:59 | W.ED.GENAD ---
Discharge Plan Disposition Patient Disposition: Home Condition: Stable Discharge Details Clinical Impression: Perianal abscess, Diverticulitis Primary Care Provider: Tariq Saini ED Provider: Kathy Payne Home Meds and New Rx's Prescriptions: New amoxicillin-pot clavulanate 875-125 mg tablet 1 tab PO BID 9 Days Qty: 18 0RF No Action ibuprofen [IBU] 800 mg tablet 800 mg PO TID PRN (Reason: pain) Qty: 90 1RF vitamin B complex Tablet 1 tab PO DAILY Qty: 90 3RF folic acid 1 mg tablet 1 mg PO DAILY Qty: 90 3RF losartan 100 mg tablet 100 mg PO DAILY Qty: 90 3RF spironolactone 25 mg tablet 25 mg PO DAILY Qty: 90 3RF Discharge Instructions Instructions: Anal Abscess and Fistula, Adult (DC) Additional Instructions: You were seen in the emergency department today for evaluation of a recurrence of your perianal abscess. In her department a full physical examination performed, had reassuring labs and a CT scan that showed a small abscess. A drainage was performed at bedside and you were started on antibiotics. Please take all of them until they are gone, even if you start to feel better. Your CT did show evidence of diverticulitis, once you are done with your antibiotics and totally healed you should get a colonoscopy performed, a referral has been sent. Please contact your primary care provider for follow-up. Thank you for allowing us to be part of your care. Discharge Data Discharge Date/Time-TO BE ENTERED AT DEPARTURE: 05/25/25 16:09 HPI General Mode of arrival: ambulatory. Date/Time Provider Initiated Documentation: 05/25/25 13:49. Limitations to Documentation: no limitations. Information obtained by: patient and old records reviewed. HPI Narrative: This is a 59-year-old male patient with a past medical history of hypertension, hyperlipidemia, pancytopenia, and a recent perirectal abscess requiring surgical incision and drainage in February 2025, here with recurrent right perianal swelling, redness, and discomfort. The patient first noticed this yesterday, initially thought it was pain in the scar due to extended sitting, but this morning felt more fullness and pain. He has not had any systemic symptoms such as fever, chills, abdominal discomfort, is passing stool normally and has had no dysuria. He completed his entire course of antibiotics after his last hospitalization. The patient is otherwise in his normal state of health. Related Data Home Medications ?Medication ?Instructions ?Recorded ?Confirmed folic acid 1 mg tablet 1 mg PO DAILY #90 tabs 07/03/24 05/25/25 ibuprofen 800 mg tablet (IBU) 800 mg PO TID PRN pain #90 tabs 07/03/24 05/25/25 vitamin B complex 1 tab PO DAILY #90 tabs 07/03/24 05/25/25 losartan 100 mg tablet 100 mg PO DAILY #90 tabs 01/11/25 05/25/25 spironolactone 25 mg tablet 25 mg PO DAILY #90 tabs 01/11/25 05/25/25 amoxicillin 875 mg-potassium 1 tab PO BID 9 days #18 tabs 05/25/25 clavulanate 125 mg tablet Previous Rx's ?Medication ?Instructions ?Recorded folic acid 1 mg tablet 1 mg PO DAILY #90 tabs 07/03/24 ibuprofen 800 mg tablet (IBU) 800 mg PO TID PRN pain #90 tabs 07/03/24 vitamin B complex 1 tab PO DAILY #90 tabs 07/03/24 losartan 100 mg tablet 100 mg PO DAILY #90 tabs 01/11/25 spironolactone 25 mg tablet 25 mg PO DAILY #90 tabs 01/11/25 amoxicillin 875 mg-potassium 1 tab PO BID 9 days #18 tabs 05/25/25 clavulanate 125 mg tablet Allergies Allergy/AdvReac Type Severity Reaction Status Date / Time No Known Allergies Allergy Verified 05/25/25 13:45 General Stated Complaint: Abd Prob MARQUISE: 3 Exam Narrative Exam Narrative: Gen: Awake and alert, in no apparent distress HEENT: Non-icteric sclera Neck: Supple Lungs: No apparent respiratory distress, normal respiratory effort. CV: Appears well perfused, heart with regular rate and rhythm Abdomen: Non-distended, soft Rectal: External rectal examination supervised by TEA Pitts, revealing a 3 x 3 area of mild redness and fluctuance without significant warmth or induration on the right perianal region, no spontaneous drainage MSK: Moves 4 extremities without apparent limitation in ROM Skin: Visualized skin without rashes, cyanosis. Neuro: Normal Gait, no obvious focal deficits or facial asymmetry. Speaks in full, clear sentences. Psych: Appropriate for situation. Course Vital Signs Vital signs: Vital Signs Temperature 36.9 C 05/25/25 13:42 Pulse 95 H 05/25/25 13:42 Respiratory Rate 18 05/25/25 13:42 Blood Pressure 111/79 05/25/25 13:42 Pulse Oximetry 96 05/25/25 13:42 Temperature 36.9 C 05/25/25 13:47 Temperature Source Skin 05/25/25 13:47 Pulse 95 H 05/25/25 13:47 Respiratory Rate 18 05/25/25 13:47 Blood Pressure 111/79 05/25/25 13:47 Blood Pressure Position Sitting 05/25/25 13:47 Pulse Oximetry 96 05/25/25 13:47 Oxygen Delivery Method Room Air 05/25/25 13:47 Oxygen Flow Rate 0 05/25/25 13:47 Pain Level 2 05/25/25 13:47 Procedure Abscess Drainage Date of Procedure: 05/25/25 Time of Procedure: 15:45 Patient Consented: Verbally Location of Exam: Buttocks/right side Indication: Abscess. Local anesthetic: Lidocaine 2% and with epi, Amount of Local Anesthetic Used (mL): 6. Sterility: Non Sterile. Procedure Prep: Hand hygiene, Surgical Mask and 11 blade Technique used, incised with blade. Amount of fluid expressed(mL): 3. Irrigation: no irrigation Packing: None. Outcome: Sucessful Procedure Description/Note: Area of maximal fluctuance was incised with an 11 blade after anesthetizing the right perianal skin with 2% lido/epi. An additional 2 cc of lidocaine was injected into the fluctuant area. After incising a scant amount of bloody/purulent drainage was appreciated, swabbed and sent for culture. I attempted deloculation, internal tissues notably indurated, no large pus pocket appreciated or opened. The incision was left open, dressed with bulky gauze and a brief was provided. Patient tolerated this procedure well without significant pain or immediate complications. Ultrasound: Not used Complications: None Medical Decision Making This is a 59-year-old male patient presenting for evaluation of fullness, swelling, and discomfort in the perirectal region. Differential includes but is not limited to perirectal or perianal abscess, cellulitis, no evidence of systemic infection such as bacteremia or sepsis. Considered fistula though the patient does not reported any purulent stool or discomfort with urination. Exam is less concerning for anal malignancy, though it was certainly considered, no evidence for fissure or external hemorrhoids. Given the history of large abscess requiring surgical drainage, we will obtain a CT of the pelvis, and basic labs to include CBC, CMP, magnesium. The patient is not requiring of any medications at this time for management of pain or fever. - I independently interpreted the laboratory studies, which show no significant leukocytosis, anemia, or thrombocytopenia. The chemistry panel is without evidence of electrolyte abnormality, kidney dysfunction, or liver injury, other than a slightly elevated bilirubin to 2.2. He has no abdominal pathology and I do note prior episodes of elevation of bilirubin, including during his last perianal abscess episode, which does increase my consideration for Gilbert's disease. No symptoms suggestive of cholecystitis, choledocholithiasis, or biliary colic. I reviewed the patient CT scan and discussed the findings with radiologist. He has a simple perianal abscess that does not involve the sphincters or across the midline, seems to be located in the subcutaneous fat. He also had evidence of uncomplicated diverticulitis. Incision and drainage performed at bedside by this provider as noted above, and the patient will be started on Augmentin. This will be appropriate coverage for both his perianal abscess as well as his incidentally noted diverticulitis. I did executive assistant to general counsel the patient that he needs to have a colonoscopy performed when he recovers, as we cannot entirely rule out malignancy as the cause of his colonic findings. I counseled the patient on return precautions, including worsening of his pain or swelling, fever or chills, inability to eat or drink, or any other symptoms of possible concern. At this time, the patient has had a full medical evaluation and is safe for discharge to home. They are hemodynamically stable, ambulatory, and tolerating PO. They are understanding of the follow-up plan and return precautions. They left our facility without incident. Kathy Payne MD [facility] All Active Problems (Updated 05/25/25 @ 15:59 by Kathy Payne MD) Diverticulitis (Chronic) Perianal abscess (Acute) Folate deficiency (Acute) Lumbar disc disorder (Acute) Lumbosacral spondylosis without myelopathy (Acute) Hypertension (Chronic) Vasculitis (Acute) Alcoholism (Chronic) Since age 12, 2-12 beers / day. h/o treatment in 1999. Sleep disorder (Acute 05/07/17) Hyperlipemia, mixed (Acute) Obesity (BMI 30.0-34.9) (Acute) DDD (degenerative disc disease), lumbar (Chronic) h/o 2 vertebral fractures after a fall Pancytopenia (Acute) Purpura (Acute) Medical History DAINA (acute kidney injury) Surgical History Dupuytrens contracture contracture of the right fifth finger. He has moderate ones of the right fourth and left fourth and fifth. surgery Jacek 06/20 Family History Father Heart disease Neoplasm LUNG/BRAIN Grandfather Heart disease Grandmother Alcohol use disorder Grandmother Asthma FAMILY HISTORY Diabetes Depression Myocardial infarction Social History Smoking/Tobacco Use Status: Current every day Tobacco Type: smokeless tobacco Tobacco: How many years used: 42 Smokeless tobacco user: snuff Second Hand Exposure: Yes Smoking risk assessment performed?: Yes Alcohol Intake: current Alcohol Intake frequency: 0-2 drinks per day Alcohol type: beer Drug use: Occasionally Substance use type: marijuana Details: Pt smokes + edibles occasionally 05/25/25 Household members: friend(s) Housing: house Number of Children: 1 number of grandchildren: 1 Communication Needs: Hard of Hearing Do you need help understanding health information?: Rarely current occupation: Disabled, previously worked in manufacturing Pets and animals: Yes Pets and animals: cat(s) Sexually active: Yes Do you think of yourself as: straight/heterosexual Current gender identity: male What is your relationship status?: How often do you talk on the phone with friends or family?: never Panel score (0-1 are the most socially isolated patients): 0 Do you feel safe at home: Yes Do you feel safe in your relationship?: Yes
[2025-05-25 14:12] LABS: Abs Immature Grans 0.01 10^3/uL (0.0-0.06); HCT 40.8 % (40.0-50.0); HGB 14.6 g/dL (13.5-17.5); Immature Grans % 0.1 %; MCH 32.3 pg (27.0-33.0); MCHC 35.8 % (32.0-36.0); MCV 90 fL (80-95); MPV 9.9 fL (8.0-11.0); Platelet Count 117 10^3/uL (130-400); RBC 4.52 10^6/uL (4.36-5.78); RDW 11.9 % (11.8-14.1); RDW-SD 39.1 fL; WBC 7.12 10^3/uL (4.4-10.8)
[2025-05-25 14:23] LABS: ALT 46 U/L (16-63); AST 23 U/L (15-37); Albumin 3.6 g/dL (3.4-5.0); Alkaline Phosphatase 158 U/L (46-116); Anion Gap 8.3 mmol/L (3-11); BUN 4 mg/dL (7-18); Bilirubin, Total 2.2 mg/dL (0.2-1.0); CO2 25.7 mmol/L (21.0-32.0); Calcium 8.9 mg/dL (8.5-10.1); Chloride 99 mmol/L (98-107); Estimated GFR 87.78 (mL/min/1.73m2); Glucose 108 mg/dL (74-106); Magnesium 2.2 mg/dL (1.8-2.4); Potassium 4.0 mmol/L (3.5-5.1); Sodium 133 mmol/L (136-145); Total Protein 7.5 g/dL (6.4-8.2)
[2025-05-25] MEDS: Normal Saline - Diluent 50 ML VIAL IJ (14:30)
[2025-05-25] MEDS: Normal Saline Flush 10 ML SYR IVP (14:30)
[2025-05-25] MEDS: Omnipaque 350 MG/ML 500 ML BTL-Imaging package IJ (14:31)
== END 2025-05-25 16:09 | disposition home or self-care (01) ==
PROVIDERS: Emergency Provider Emergency Medicine; PCP Nurse Practitioner Family
DX: K57.92 Diverticulitis of intestine, part unspecified, without perforation or abscess without bleeding (principal); K61.0 Anal abscess
CPT/HCPCS: 99285; 99284; 10061; 80053; 72193; 83735; 85025; 87070; 87205

== ENCOUNTER 2025-07-05 08:19 | Outpatient (CLI) | payer BC, SELFPAY ==
[2025-07-05 14:18] LABS: Calculated LDL 67 mg/dL (<100); Cholesterol 133 mg/dL (<200); HDL Cholesterol 56 mg/dL (>or=40); Triglyceride 54 mg/dL (<150)
[2025-07-05 14:41] LABS: Hemoglobin A1C < 4.5 % (<5.7)
[2025-07-05 22:10] LABS: PSA, Screening 0.6 ng/mL (<=3.5)
== END 2025-07-05 08:20 | disposition home or self-care (01) ==
LOC: LOS 08:19
PROVIDERS: PCP Nurse Practitioner Family; Referring Provider Nurse Practitioner Family; Visit Provider Nurse Practitioner Family
DX: Z13.220 Encounter for screening for lipoid disorders (principal); Z13.1 Encounter for screening for diabetes mellitus; Z12.5 Encounter for screening for malignant neoplasm of prostate
CPT/HCPCS: 36415; 80061; 84153; 83036